=== PATIENT | male | born 1960 | race American Indian/Alaskan Native ===

== ENCOUNTER 2018-08-12 14:47 | Emergency (ER) | payer OTHER ==
[2018-08-12] MEDS: KETOROLAC 60 MG/2 ML VIAL (J1885) IM (15:51)
== END 2018-08-12 16:21 | disposition home or self-care (01) ==
LOC: M ED 14:47
DX: S42.002A Fracture of unspecified part of left clavicle, initial encounter for closed fracture (principal); W01.0XXA Fall on same level from slipping, tripping and stumbling without subsequent striking against object, initial encounter; Y92.018 Other place in single-family (private) house as the place of occurrence of the external cause; Z88.0 Allergy status to penicillin; F17.210 Nicotine dependence, cigarettes, uncomplicated
CPT/HCPCS: J1885

== ENCOUNTER 2018-08-12 19:31 | Emergency (ER) | payer OTHER ==
[2018-08-12] MEDS: NORCO, ANEXSIA 5/325MG TABLET (HYDROcodone/ACETAMINOPHEN) PO (19:57)
== END 2018-08-12 20:01 | disposition home or self-care (01) ==
LOC: M ED 19:31
DX: Z76.0 Encounter for issue of repeat prescription (principal); S42.002D Fracture of unspecified part of left clavicle, subsequent encounter for fracture with routine healing; X58.XXXD Exposure to other specified factors, subsequent encounter; Z88.0 Allergy status to penicillin; F17.210 Nicotine dependence, cigarettes, uncomplicated
CPT/HCPCS: 99282

== ENCOUNTER 2020-09-11 11:17 | Emergency (ER) | payer OTHER ==
[~2020-09-11] VITALS: Ht 185.4 cm; Wt 79.5 kg
[~2020-09-11 11:17] MED LIST: HYDR-3715 PO
[2020-09-11 11:58] LABS: BASO % 0.2 % (0.0-1.0); EOS % 0.3 % (0.0-3.0); HEMATOCRIT 41.4 % (42.0-52.0); LYMPH # 3.5 10^3/uL (1.5-5.0); LYMPH % 26.9 % (24.0-44.0); MEAN CORPUSCULAR HEMOGLOBIN 28.6 pg (27.0-33.0); MEAN CORPUSCULAR HGB CONC 33.8 g/dl (32.0-36.5); MEAN CORPUSCULAR VOLUME 84.5 fl (80.0-96.0); MONO # 1.4 10^3/uL (0.0-0.8); MONO % 10.8 % (0.0-5.0); NEUTROPHILS % 61.6 % (36.0-66.0); PLATELET COUNT, AUTOMATED 415 10^3/uL (150-450); WHITE BLOOD COUNT 13.1 10^3/uL (4.0-10.0)
[2020-09-11 12:21] LABS: ERYTHROCYTE SEDIMENTATION RATE 61 mm/hr (0-20)
[2020-09-11 12:26] LABS: BLOOD UREA NITROGEN 16 MG/DL (7-18); CALCIUM LEVEL 10.1 MG/DL (8.5-10.1); CARBON DIOXIDE LEVEL 27 MEQ/L (21-32); CHLORIDE LEVEL 98 MEQ/L (98-107); CREATININE FOR GFR 0.64 MG/DL (0.70-1.30); GLOMERULAR FILTRATION RATE > 60.0 (>56); GLUCOSE, FASTING 99 MG/DL (70-100); POTASSIUM SERUM 4.4 MEQ/L (3.5-5.1); SODIUM LEVEL 131 MEQ/L (136-145)
[2020-09-11] MEDS ORDERED: KETOROLAC 30 MG/ML 1ML VIAL IV ONE (13:00)
[2020-09-11] MEDS ORDERED: DOXYCYCLINE HYCLATE 100MG TABLET PO ONE (13:00)
[2020-09-11] MEDS ORDERED: diazePAM 5MG TABLET PO ONE (13:00)
[2020-09-11] MEDS ORDERED: CYCL-707 PO (13:34)
[2020-09-11] MEDS ORDERED: DOXY100C37 PO (13:34)
[2020-09-11 13:38] VITALS: BP 145/89
== END 2020-09-11 14:20 | disposition home or self-care (01) ==
LOC: M ED 11:17 → EDBD 11:17 → M ED 14:20
DX: L02.412 Cutaneous abscess of left axilla (principal); L72.3 Sebaceous cyst; S39.012A Strain of muscle, fascia and tendon of lower back, initial encounter; M54.16 Radiculopathy, lumbar region; X58.XXXA Exposure to other specified factors, initial encounter; Y92.89 Other specified places as the place of occurrence of the external cause; Y93.89 Activity, other specified; Y99.8 Other external cause status; M25.572 Pain in left ankle and joints of left foot; R10.31 Right lower quadrant pain; F17.210 Nicotine dependence, cigarettes, uncomplicated; Z88.0 Allergy status to penicillin
CPT/HCPCS: 80048; 85025; 85652; 86140; 96374; 99284; J1885

== ENCOUNTER 2020-09-18 19:48 | Emergency (ER) | payer OTHER ==
[~2020-09-18] VITALS: Ht 185.4 cm; Wt 78.2 kg
[~2020-09-18 19:48] MED LIST changes: +CYCL-707 PO; +DOXY100C37 PO
[2020-09-18 20:05] VITALS: BP 139/78
[2020-09-18 20:59] LABS: BASO # 0.1 10^3/uL (0.0-0.2); BASO % 0.3 % (0.0-1.0); EOS # 0.1 10^3/uL (0.0-0.5); EOS % 0.8 % (0.0-3.0); HEMATOCRIT 39.5 % (42.0-52.0); LYMPH # 3.6 10^3/uL (1.5-5.0); LYMPH % 23.3 % (24.0-44.0); MEAN CORPUSCULAR HEMOGLOBIN 28.2 pg (27.0-33.0); MEAN CORPUSCULAR HGB CONC 32.9 g/dl (32.0-36.5); MEAN CORPUSCULAR VOLUME 85.7 fl (80.0-96.0); MONO # 1.9 10^3/uL (0.0-0.8); MONO % 12.2 % (0.0-5.0); NEUTROPHILS # 9.8 10^3/uL (1.5-8.5); NEUTROPHILS % 62.9 % (36.0-66.0); PLATELET COUNT, AUTOMATED 418 10^3/uL (150-450); RED BLOOD COUNT 4.61 10^6/uL (4.30-6.10); WHITE BLOOD COUNT 15.6 10^3/uL (4.0-10.0)
--- NOTE | 2020-09-18 21:06 | REPVR ---
PROCEDURE INFORMATION: Exam: CT Head Without Contrast Exam date and time: 09/18/2020 8:21 PM Age: 59 years old Clinical indication: Pain; Headache; Additional info: Severe headache TECHNIQUE: Imaging protocol: Computed tomography of the head without contrast. Radiation optimization: All CT scans at this facility use at least one of these dose optimization techniques: automated exposure control; mA and/or kV adjustment per patient size (includes targeted exams where dose is matched to clinical indication); or iterative reconstruction. COMPARISON: No relevant prior studies available. FINDINGS: Brain: There is no acute cortical infarction, intracranial hemorrhage or mass. Cerebral ventricles: No ventriculomegaly. Bones/joints: Unremarkable. No acute fracture. Paranasal sinuses: Visualized sinuses are unremarkable. No fluid levels. Mastoid air cells: Visualized mastoid air cells are well aerated. Soft tissues: Unremarkable. IMPRESSION: No acute intracranial abnormality. Electronically signed by: Megan Nation On 09/18/2020 21:07:06 PM
--- NOTE | 2020-09-18 21:14 | REPVR ---
PROCEDURE INFORMATION: Exam: CT Lumbar Spine Without Contrast Exam date and time: 09/18/2020 8:21 PM Age: 59 years old Clinical indication: Low back pain TECHNIQUE: Imaging protocol: Computed tomography images of the lumbar spine without contrast. Radiation optimization: All CT scans at this facility use at least one of these dose optimization techniques: automated exposure control; mA and/or kV adjustment per patient size (includes targeted exams where dose is matched to clinical indication); or iterative reconstruction. COMPARISON: No relevant prior studies available. FINDINGS: Vertebrae: No anterior wedging deformity. Several Schmorl's nodes are visualized, age indeterminate. No acute lucent fracture lines are seen. No destructive osseous lesions identified. There is mild right convexity of the lumbar. Discs/Spinal canal/Neural foramina: Mild spondylitic changes are noted, with no severe central canal stenosis demonstrated by CT. Neural foraminal stenosis is seen on the left at L3-L4, bilaterally at L5-S1. IMPRESSION: No acute lumbar spinal injury demonstrated by CT. Degenerative changes of the lumbar spine. Electronically signed by: Carmen Pedraza On 09/18/2020 21:14:26 PM
[2020-09-18 21:23] LABS: ERYTHROCYTE SEDIMENTATION RATE 70 mm/hr (0-20)
[2020-09-18 21:30] LABS: BLOOD UREA NITROGEN 16 MG/DL (7-18); CALCIUM LEVEL 9.5 MG/DL (8.5-10.1); CARBON DIOXIDE LEVEL 27 MEQ/L (21-32); CHLORIDE LEVEL 99 MEQ/L (98-107); CPK CREATINE PHOSPHOKINASE 104 U/L (39-308); CREATININE FOR GFR 0.79 MG/DL (0.70-1.30); GLOMERULAR FILTRATION RATE > 60.0 (>56); GLUCOSE, FASTING 101 MG/DL (70-100); POTASSIUM SERUM 5.1 MEQ/L (3.5-5.1); SODIUM LEVEL 131 MEQ/L (136-145)
[2020-09-18] MEDS ORDERED: NS 1,000 ML IV ONE (22:00)
[2020-09-18] MEDS ORDERED: KETOROLAC 30 MG/ML 1ML VIAL IV ONE (22:00)
--- NOTE | 2020-09-18 22:09 | REPVR ---
PROCEDURE INFORMATION: Exam: XR Chest, 1 View Exam date and time: 09/18/2020 9:53 PM Age: 59 years old Clinical indication: Right-sided chest pain; Additional info: Right mid back pain; R/O pneumonia TECHNIQUE: Imaging protocol: XR of the chest Views: 1 view. COMPARISON: CR Chest, 2 view PA, Lat 04/29/2016 3:02 AM FINDINGS: Lungs: There is no pulmonary vascular congestion. There is no evidence of focal parenchymal consolidation. Hyperinflation is likely due to emphysematous changes. Pleural space: There are no pleural effusions. There is no evidence of pneumothorax. Heart/Mediastinum: The cardiac silhouette is within normal limits. Bones/joints: No acute osseous abnormality is identified. IMPRESSION: 1. No infiltrate or pleural effusion is seen. 2. Hyperinflation is likely due to emphysematous changes. Electronically signed by: Carmen Pedraza On 09/18/2020 22:09:34 PM
--- NOTE | 2020-09-19 00:04 | REPVR ---
PROCEDURE INFORMATION: Exam: CT Abdomen And Pelvis Without Contrast Exam date and time: 09/18/2020 10:51 PM Age: 59 years old Clinical indication: Abdominal pain; Flank; Right; Additional info: Right flank pain; Hematuria- R/O stone TECHNIQUE: Imaging protocol: Computed tomography of the abdomen and pelvis without contrast. Radiation optimization: All CT scans at this facility use at least one of these dose optimization techniques: automated exposure control; mA and/or kV adjustment per patient size (includes targeted exams where dose is matched to clinical indication); or iterative reconstruction. COMPARISON: No relevant prior studies available. FINDINGS: Liver: The liver is enlarged. No definite parenchymal lesions are identified by noncontrast CT. Gallbladder and bile ducts: The gallbladder is normal. Pancreas: The pancreas is normal. 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 Nodular densities in the splenic bed are presumed splenules but are nonspecific. Adrenal glands: The adrenal glands appear nodular bilaterally, nonspecific but suspicious for metastatic disease. Kidneys and ureters: Nonobstructing right nephrolithiasis. Stomach and bowel: The stomach is normal. Retained fecal material is noted in the colon. No bowel obstruction is seen. The bowel is not optimally characterized without contrast. Appendix: No evidence of appendicitis. Intraperitoneal space: No free air. No significant fluid collection. Retroperitoneal space: Soft tissue density nodules are seen in the splenic bed, the pericolic gutters bilaterally, the left retroperitoneal space at the anterior margin of ileus psoas muscle, pelvis, and right groin. The largest soft tissue nodules measure 4.8 and 3.9 cm and are located in pelvis, abutting the rectal wall. Exophytic rectal mass cannot be excluded. Correlate with clinical and historic information. Vasculature: Atherosclerotic vascular disease is noted. Lymph nodes: Unremarkable. No enlarged lymph nodes. Urinary bladder: The bladder is normal. Reproductive: Unremarkable as visualized. Bones/joints: Spinal degenerative changes noted. There findings of osseous metastatic disease, with destructive lesions involving the right posterior elements at T11, suspected lesions at T12 and L3, and dominant destructive lesion involving the right acetabulum, with disruption of the medial acetabular wall and the quadrilateral plate, as well as soft tissue extension. IMPRESSION: 1. Findings of osseous metastatic disease, with dominant lesion involving the right acetabulum, disrupting the quadrilateral plate and medial acetabular wall. 2. Multiple nodular lesions in the abdomen and pelvis, largest adjacent to the rectum and inseparable from the rectal wall, as described. Metastatic disease is the primary consideration. An exophytic rectal mass is not excluded. 3. 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 4. Nonobstructing right nephrolithiasis. 5. Hepatomegaly. Electronically signed by: Carmen Pedraza On 09/19/2020 00:04:54 AM
== END 2020-09-19 01:15 | disposition left against medical advice (07) ==
LOC: M ED 19:48
DX: C79.51 Secondary malignant neoplasm of bone (principal); M54.5 Low back pain; Z88.0 Allergy status to penicillin; Z79.899 Other long term (current) drug therapy; Z79.2 Long term (current) use of antibiotics
CPT/HCPCS: 70450; 71045; 72131; 74176; 80048; 81001; 82550; 85025; 85652; 86140; 96361; 96374; 99284; J1885

== ENCOUNTER 2020-09-19 08:52 | Inpatient (IN) | payer OTHER ==
[~2020-09-19] VITALS: Ht 185.4 cm; Wt 77.0 kg
[2020-09-19] MEDS ORDERED: NS 1,000 ML IV SCH (09:16)
[2020-09-19] MEDS ORDERED: MORPHINE 4 MG/ML 1ML VIAL/SYRINGE (J2270) IV PRN (09:30)
[2020-09-19] MEDS ORDERED: ONDANSETRON 4MG/2ML VIAL IV ONE (09:30)
[2020-09-19 10:07] LABS: BASO # 0.1 10^3/uL (0.0-0.2); BASO % 0.4 % (0.0-1.0); EOS % 0.3 % (0.0-3.0); HEMATOCRIT 38.8 % (42.0-52.0); HEMOGLOBIN 12.4 g/dl (13.5-17.5); LYMPH # 2.7 10^3/uL (1.5-5.0); LYMPH % 21.4 % (24.0-44.0); MEAN CORPUSCULAR HEMOGLOBIN 27.3 pg (27.0-33.0); MEAN CORPUSCULAR VOLUME 85.5 fl (80.0-96.0); MONO # 1.5 10^3/uL (0.0-0.8); MONO % 12.2 % (0.0-5.0); NEUTROPHILS # 8.2 10^3/uL (1.5-8.5); NEUTROPHILS % 65.3 % (36.0-66.0); PLATELET COUNT, AUTOMATED 408 10^3/uL (150-450); RED BLOOD COUNT 4.54 10^6/uL (4.30-6.10); WHITE BLOOD COUNT 12.6 10^3/uL (4.0-10.0)
[2020-09-19 10:36] LABS: ALBUMIN 2.8 GM/DL (3.2-5.2); ALT/SGPT 13 U/L (12-78); BILIRUBIN,DIRECT 0.1 MG/DL (0.0-0.2); BILIRUBIN,TOTAL 0.4 MG/DL (0.2-1.0); BLOOD UREA NITROGEN 11 MG/DL (7-18); CARBON DIOXIDE LEVEL 27 MEQ/L (21-32); CHLORIDE LEVEL 96 MEQ/L (98-107); CK-MB VALUE MASS < 1.0 NG/ML (<3.6); CPK CREATINE PHOSPHOKINASE 62 U/L (39-308); CREATININE FOR GFR 0.56 MG/DL (0.70-1.30); GLOMERULAR FILTRATION RATE > 60.0 (>56); GLUCOSE, FASTING 96 MG/DL (70-100); LIPASE 34 U/L (73-393); MB/CK RELATIVE INDEX 1.61 (< OR =4); POTASSIUM SERUM 4.3 MEQ/L (3.5-5.1); SODIUM LEVEL 130 MEQ/L (136-145); TOTAL PROTEIN 7.5 GM/DL (6.4-8.2); TROPONIN I < 0.02 NG/ML (< 0.10)
[2020-09-19 10:54] LABS: RSV AMPLIFICATION NEGATIVE (NEGATIVE)
[2020-09-19] MEDS ORDERED: ONDANSETRON 4MG/2ML VIAL IV PRN (11:45)
--- NOTE | 2020-09-19 12:27 | REP ---
INDICATION: mets COMPARISON: None TECHNIQUE: Axial noncontrast images from the thoracic inlet to the upper abdomen with coronal and sagittal reformations. This CT examination was performed using the following dose reduction techniques: Automated exposure control, adjustment of mA and/or kv according to the patient's size, and use of iterative reconstruction technique. FINDINGS: Left perihilar mass measuring roughly 3.6 cm maximal diameter with spiculated margination is identified. Small 10 mm left upper lobe perihilar lesion, and small irregular part solid nodular area in the periphery of the right upper lobe measuring roughly 3 cm maximal diameter is appreciated. Scattered irregular focal areas of fibrosis and ground-glass nodularity is also identified within the right upper lobe and right lower lobe which may represent early or resolving lesions. Underlying chronic emphysematous changes and scattered scarring noted. No pleural effusion. No pneumothorax. Tracheobronchial tree is relatively patent. Atherosclerotic changes to the thoracic aorta and coronary arteries noted without aortic aneurysm or cardiomegaly. No pericardial effusion. Mediastinal and hilar adenopathy cannot be excluded. Osseous structures demonstrate degenerative changes with subtle scattered lytic lesions in multiple vertebral bodies suggesting metastatic lesions. IMPRESSION: 1. 3.6 cm left hilar mass. Smaller ill-defined scattered primarily part solid and ground-glass nodular lesions with peripheral spiculated margins suggest satellite lesions. Adenopathy cannot be excluded and is incompletely evaluated due to lack of contrast enhancement. 2. Thoracic vertebral bodies demonstrate subtle scattered lytic lesions suspicious for associated osseous metastases. <Electronically signed by Galindo Taylor > 09/19/20 [id number]
[2020-09-19 14:00] VITALS: BP 140/85
[2020-09-19] MEDS: MORPHINE 2 MG/ML 1ML VIAL (J2270) IV PRN ×2 (14:39→19:08)
[2020-09-19] MEDS: ENOXAPARIN 40MG/0.4ML SYRINGE (J1650 PER 10MG) SC SCH (14:40)
[2020-09-19] MEDS: KCL 20MEQ in NS 1000ML 1,000 ML IV SCH ×2 (14:52→21:26)
[2020-09-19 15:12] LABS: OSMOLALITY SERUM 268 MOSM/KG (275-295)
[2020-09-19 15:20] LABS: FREE T4 1.27 NG/DL (0.76-1.46); TOTAL PROTEIN 7.4 GM/DL (6.4-8.2)
--- NOTE | 2020-09-19 16:07 | HPE ---
HISTORY AND PHYSICAL DATE OF ADMISSION: 09/19/2020 CHIEF COMPLAINT: Intractable pain from suspected metastatic cancer unknown origin. HISTORY OF PRESENT ILLNESS: The patient is a 59-year-old who presented to the emergency room last night with intractable pain in his right thigh, low back, and left jaw. He had CT of the abdomen and pelvis that suggested metastatic skeletal disease, as well as nodular lesions of the abdomen and pelvis and possible rectal mass. 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 He felt like he had to go home to attend to things and came back to be admitted for pain control and workup. I did a CT of the chest on admission that shows a 3.6 cm left hilar mass, ground-glass nodular lesions with peripheral spiculated margins suggesting satellite lesions, thoracic vertebral bodies suspicious for associated osseous metastasis. PAST MEDICAL HISTORY: He has no significant past medical history. He does not have a primary care provider and has not seen a doctor at any point in his life. SOCIAL HISTORY: He is single. 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 He smokes a pack of cigarettes a day. He drinks no alcohol. FAMILY HISTORY: Both parents of "old age." No cancer in the family. REVIEW OF SYSTEMS: He has lost about 7 pounds in the last month. He has lost his appetite. He says he is not thirsty like he usually is either. No fevers, chills, night sweats, hematuria, rectal bleeding, or hemoptysis. He has a chronic cough and it has not changed. No chest pain. Neurologic: He has a constant headache on the left side of his head that has been present for about two weeks not associated with any visual disturbance, focal weakness, or numbness. MEDICATIONS: None. ALLERGIES: PENICILLIN. PHYSICAL EXAMINATION: VITAL SIGNS: Per flow sheet. He is alert, oriented, and conversant, in no distress. HEENT: Pupils equal and reactive to light. TMs normal. Oropharynx difficult to exam with no flashlight, but it looked grossly unremarkable. He has a bony nodular mass in the left mandibular ramus. NECK: No adenopathy. He has a bony prominence slightly tender over the spine of the left scapula. LUNGS: Decreased breath sounds, but clear. HEART: Regular rhythm with no murmur. ABDOMEN: Soft and nontender with no masses. Liver and spleen not enlarged. EXTREMITIES: No clubbing, cyanosis, or edema. Moves arms and legs with equal strength. LABORATORY DATA: White count is 12.6, hemoglobin 12.4, platelets 408,000. Sodium 130, potassium 4.3, BUN 11, creatinine 0.5, glucose 96. Liver function tests all normal. Albumin 2.8. COVID test negative. Urinalysis yesterday had 20 red cells. IMPRESSION: 1. Intractable skeletal pain from suspected metastatic disease of unknown primary. He has an abnormality in the perirectal region, nodular masses in the abdomen, and a hilar mass. The case has been discussed informally with pulmonary, as well as oncology. We will hold off on consultation for both those specialties until we obtain tissue biopsy. I discussed fiberoptic bronchoscopy versus image-guided biopsy with pulmonology, and they advised to try the image-guided approach first. He has a left scapular lesion that should be quite approachable, as well as hilar mass, as well as abdominal masses. We also could do a lower endoscopy if necessary. Oncology is ready to see him once we get a tissue diagnosis. 2. Adrenal lesions, suspected metastatic disease. We will get a fasting cortisol level on him. He might need adrenal support. 3. Tobacco abuse. Concern about lung cancer. Importance of smoking cessation discussed. 4. Headache. MRI of the brain ordered for concern about metastatic lesion. 5. Deep vein thrombosis (DVT) prophylaxis with Lovenox has been ordered.
--- NOTE | 2020-09-19 16:48 | REPVR ---
PROCEDURE INFORMATION: Exam: MR Head Without and With Contrast Exam date and time: 09/19/2020 3:50 PM Age: 59 years old Clinical indication: Screening for metastatic disease. History of possible lung CA and possible melanoma of the skin. TECHNIQUE: Imaging protocol: MR of the head without and with intravenous contrast. Contrast material: PROHANCE; Contrast volume: 15 ml; Contrast route: INTRAVENOUS (IV); COMPARISON: CT Head without contrast 09/18/2020 8:17 PM FINDINGS: Brain: Multiple small enhancing intracranial lesions are present including two adjacent lesions within the right frontal lobe (axial postcontrast images 18 and 17, another small lesion inferiorly in the right gyrus rectus on axial postcontrast image 13, and the largest singular lesion in the superior right cerebellar hemisphere measuring 0.8 cm. Small degree of vasogenic edema surrounds the lesions in the right gyrus rectus and right cerebellum. Mild nonspecific T2/FLAIR hyperintensities of the periventricular and deep subcortical white matter, most likely secondary to chronic small vessel ischemic change. No evidence of acute intracranial hemorrhage or extra-axial fluid collection. No evidence of mass effect or midline shift. No restricted diffusion to suggest acute infarct. Cerebral ventricles: No ventriculomegaly. Bones/joints: Unremarkable. Paranasal sinuses: Normal as visualized. No acute sinusitis. Mastoid air cells: No mastoid effusion. Orbits: Unremarkable. Soft tissues: Unremarkable. IMPRESSION: Findings concerning for several small intracranial metastases, as detailed above. Electronically signed by: Odin Alvarez On 09/19/2020 16:48:27 PM
[2020-09-19 22:00] VITALS: BP 114/75
[2020-09-20 06:00] VITALS: BP 111/73
[2020-09-20 07:01] LABS: HEMATOCRIT 38.1 % (42.0-52.0); HEMOGLOBIN 12.6 g/dl (13.5-17.5); MEAN CORPUSCULAR HEMOGLOBIN 28.3 pg (27.0-33.0); MEAN CORPUSCULAR HGB CONC 33.1 g/dl (32.0-36.5); MEAN CORPUSCULAR VOLUME 85.6 fl (80.0-96.0); PLATELET COUNT, AUTOMATED 392 10^3/uL (150-450); RED BLOOD COUNT 4.45 10^6/uL (4.30-6.10)
[2020-09-20 07:28] LABS: BLOOD UREA NITROGEN 12 MG/DL (7-18); CALCIUM LEVEL 9.7 MG/DL (8.5-10.1); CARBON DIOXIDE LEVEL 28 MEQ/L (21-32); CHLORIDE LEVEL 97 MEQ/L (98-107); CREATININE FOR GFR 0.58 MG/DL (0.70-1.30); GLOMERULAR FILTRATION RATE > 60.0 (>56); GLUCOSE, FASTING 100 MG/DL (70-100); POTASSIUM SERUM 4.5 MEQ/L (3.5-5.1); SODIUM LEVEL 130 MEQ/L (136-145)
[2020-09-20] MEDS: KCL 20MEQ in NS 1000ML 1,000 ML IV SCH (07:45)
[2020-09-20] MEDS: ENOXAPARIN 40MG/0.4ML SYRINGE (J1650 PER 10MG) SC SCH (08:17)
[2020-09-20] MEDS: ACETAMINOPHEN 500 MG TAB PO PRN ×2 (08:18→15:56)
[2020-09-20] MEDS ORDERED: GLUCOSE 4GM CHEW TABLET PO PRN (10:15)
[2020-09-20] MEDS ORDERED: DEXTROSE 50% 50 ML SYRINGE IV PRN (10:15)
[2020-09-20] MEDS ORDERED: GLUCAGON INJ 1MG VIAL SC PRN (10:15)
--- NOTE | 2020-09-20 10:34 | IPN ---
PROGRESS NOTE DATE: 09/20/2020 SUBJECTIVE: Jose's workup continues to show ominous findings. He presented with bony pain and headache. Radiographic studies show diffuse metastatic disease involving various areas of the skeletal system. We did an MRI of the brain yesterday which unfortunately showed several intracranial metastases. There is some vasogenic edema associated with some of the lesions. No mass effect or midline shift. PHYSICAL EXAMINATION: Vital signs: Afebrile, vital signs stable. General appearance: He is alert, conversant, no distress. No facial droop or weakness. HEENT shows a hard, nodular mass left mandibular ramus. He has a large palpable mass over the spine and left scapula. Lungs: Clear. Heart: Regular rate and rhythm. Abdomen: Soft, nontender. Extremities: No peripheral edema. IMPRESSION: 1. Metastatic disease, unknown primary. He has a large lung mass as well as findings suspicious for rectal cancer. I ordered an image placed needle biopsy. We will defer to radiology as far as the lesions; scapula lesion is certainly very accessible. Case has been discussed with Dr. Acuña of the oncology service. He will see the patient in consultation. There is no gastroenterology nor interventional radiology available over the weekend. I will consult gastroenterology on Tuesday when we have some coverage again. 2. Headache. Concerned about the brain metastases. We are going to start some Decadron. Findings have been discussed on a daily with the patient who understands and asks appropriate questions.
--- NOTE | 2020-09-20 10:40 | RADENCPD ---
Date/Time of Encounter Date of Encounter: Sep 20, 2020 Time of Encounter: 10:31 Encounter Received a request for consultation from Dr. Ross. I reviewed the MRI brain and CT chest and note patient has a small volume of metastatic disease in the brain consisting of a few scattered subcentimeter lesions. He is on appropriate decadron for his headache. No report of focal neurologic deficits. He has what looks like a left lung primary cancer. I recommend a CT abdomen and pelvis with contrast to complete initial staging as he has apparent abdominal metastatic adenopathy on the lower cuts of his CT chest adjacent to the upper pole of the right kidney. Given his low volume intracranial disease, and the possibility that this may be small cell lung cancer (as opposed to NSCLC or an alternative primary site), I think it would be most prudent to wait for tissue diagnosis before proceeding with any brain directed radiation. If he is proven to have SCLC, then standard of care would be whole brain radiation. If he has any other histology I would offer him radiosurgical intervention, which I now do here @ [facility]. I will meet with the patient on Tuesday09/22/20 in person and discuss these opti ons. We can discuss whether he would benefit from palliative RT to his skeletal metastases as well. By then hopefully a biopsy will be in the works. AVI DEY MD Sep 20, 2020 10:40
[2020-09-20] MEDS: dexameTHASONE 4 MG/ML 1ML VIAL (J1100 PER 1MG) IV SCH ×3 (12:58→23:24)
[2020-09-20] MEDS: HumaLOG INSULIN (NovoLOG) PER UNIT SC SCH ×3 (12:59→19:52)
[2020-09-20 14:00] VITALS: BP 130/80
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
[2020-09-20 22:00] VITALS: BP 130/86
[2020-09-21] MEDS: ACETAMINOPHEN 500 MG TAB PO PRN ×2 (02:42→14:20)
[2020-09-21] MEDS: dexameTHASONE 4 MG/ML 1ML VIAL (J1100 PER 1MG) IV SCH ×3 (05:13→18:27)
[2020-09-21 06:00] VITALS: BP 135/88
[2020-09-21 06:13] LABS: HEMATOCRIT 38.6 % (42.0-52.0); HEMOGLOBIN 12.4 g/dl (13.5-17.5); MEAN CORPUSCULAR HEMOGLOBIN 27.2 pg (27.0-33.0); MEAN CORPUSCULAR HGB CONC 32.1 g/dl (32.0-36.5); MEAN CORPUSCULAR VOLUME 84.6 fl (80.0-96.0); PLATELET COUNT, AUTOMATED 422 10^3/uL (150-450); RED BLOOD COUNT 4.56 10^6/uL (4.30-6.10); WHITE BLOOD COUNT 10.8 10^3/uL (4.0-10.0)
[2020-09-21 06:40] LABS: BLOOD UREA NITROGEN 16 MG/DL (7-18); CALCIUM LEVEL 9.5 MG/DL (8.5-10.1); CARBON DIOXIDE LEVEL 26 MEQ/L (21-32); CHLORIDE LEVEL 100 MEQ/L (98-107); CREATININE FOR GFR 0.69 MG/DL (0.70-1.30); GLOMERULAR FILTRATION RATE > 60.0 (>56); GLUCOSE, FASTING 137 MG/DL (70-100); POTASSIUM SERUM 4.2 MEQ/L (3.5-5.1); SODIUM LEVEL 130 MEQ/L (136-145)
[2020-09-21] MEDS: ENOXAPARIN 40MG/0.4ML SYRINGE (J1650 PER 10MG) SC SCH (08:36)
[2020-09-21] MEDS: HumaLOG INSULIN (NovoLOG) PER UNIT SC SCH ×4 (08:36→20:51)
--- NOTE | 2020-09-21 13:51 | IPN ---
PROGRESS NOTE DATE: 09/21/2020 SUBJECTIVE: No real change in Jose. His headache is better since starting the Decadron. He has a visual disturbance. It sounds like some minor diplopia probably related to his brain tumors. Appreciate the consultation from Oncology, from Dr. Acuña and Dr. Navarro from Radiation Oncology. Plan is for biopsy of one of his lesions by Interventional Radiology tomorrow. PHYSICAL EXAMINATION: Vital signs: Afebrile, vital signs stable. General: Unchanged from yesterday. LABS: CBC, BMP unremarkable. Sodium is remaining normal at 130. IMPRESSION AND PLAN: 1. Widely metastatic cancer, unknown primary. Suspect lung primary. He also has a perirectal mass. He is going in for Interventional Radiology tomorrow. Most accessible lesion is probably the lesion over the left scapular spine. Further treatments on hold until we get pathology back. 2. Question adrenal insufficiency. Not hypotensive. Electrolytes do not look terribly unremarkable except for chronic mild hyponatremia. He has a fasting cortisol pending. He is at risk for renal insufficiency from the metastases. 3. Headache probably from the brain metastases, better with the IV Decadron. 4. Visual disturbance. He has some mild diplopia. Onset was before starting the Decadron. I suspect this is related to brain metastases.
[2020-09-21 14:00] VITALS: BP 109/71
[2020-09-21] MEDS: MORPHINE 2 MG/ML 1ML VIAL (J2270) IV PRN (18:28)
[2020-09-21 22:00] VITALS: BP 111/71
[2020-09-22] MEDS: dexameTHASONE 4 MG/ML 1ML VIAL (J1100 PER 1MG) IV SCH ×2 (00:46→05:58)
[2020-09-22] MEDS: ACETAMINOPHEN 500 MG TAB PO PRN (00:47)
[2020-09-22] MEDS: MORPHINE 2 MG/ML 1ML VIAL (J2270) IV PRN (00:48)
[2020-09-22 06:00] VITALS: BP 139/86
[2020-09-22 06:47] LABS: HEMATOCRIT 38.1 % (42.0-52.0); HEMOGLOBIN 12.5 g/dl (13.5-17.5); MEAN CORPUSCULAR HEMOGLOBIN 28.1 pg (27.0-33.0); MEAN CORPUSCULAR HGB CONC 32.8 g/dl (32.0-36.5); MEAN CORPUSCULAR VOLUME 85.6 fl (80.0-96.0); PLATELET COUNT, AUTOMATED 404 10^3/uL (150-450); RED BLOOD COUNT 4.45 10^6/uL (4.30-6.10); WHITE BLOOD COUNT 22.9 10^3/uL (4.0-10.0)
[2020-09-22 07:09] LABS: BLOOD UREA NITROGEN 17 MG/DL (7-18); CALCIUM LEVEL 9.5 MG/DL (8.5-10.1); CARBON DIOXIDE LEVEL 25 MEQ/L (21-32); CHLORIDE LEVEL 102 MEQ/L (98-107); CREATININE FOR GFR 0.75 MG/DL (0.70-1.30); GLOMERULAR FILTRATION RATE > 60.0 (>56); GLUCOSE, FASTING 133 MG/DL (70-100); POTASSIUM SERUM 4.6 MEQ/L (3.5-5.1); SODIUM LEVEL 133 MEQ/L (136-145)
[2020-09-22] MEDS ORDERED: MIRALAX *UNIT DOSE* 17GM PACKET PO PRN (08:00)
[2020-09-22] MEDS ORDERED: NORCO, ANEXSIA 5/325MG TABLET (HYDROcodone/ACETAMINOPHEN) PO PRN (08:00)
--- NOTE | 2020-09-22 08:58 | IPN ---
PROGRESS NOTE DATE: 09/19/2020 SUBJECTIVE: Jose [facility]. He is hoping to go home today after his image-guided biopsy. 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 He would like to go home but I am concerned about his safety as far as his right hip and towards that end had a discussion with Dr. Espino from Orthopedics which will be summarized below. Headache is better since started on Decadron and he notes the visual disturbance is better as well. PHYSICAL EXAMINATION: VITAL SIGNS: Stable, afebrile. HEENT: No nystagmus. No facial droop or weakness. LUNGS: Clear. HEART: Regular rate and rhythm. ABDOMEN: Soft, nontender. EXTREMITIES: Normal strength in arms and legs. NEUROLOGIC: Normal coordination on [id number]. Gait shows he has an antalgic gait and right hip seems unsteady to him. LABS: CBC, BMP unremarkable. Blood sugars have been normal. IMPRESSION AND PLAN: 1. Metastatic disease, unknown primary. Image-guided biopsy today. Appreciate the involvement of Dr. Navarro and Dr. Acuña from radiation and medical oncology respectively. It will be several days before we get the biopsy results back. 2. Brain metastases with headaches, improved with IV Decadron. He will be discharged on oral Decadron. He is hoping to go home today but we might need to hold that up so we can get a bone scan. 3. Right acetabular disruption. He is concerned about his right hip. I called Dr. Espino. He reviewed the CT scan. There is concern about the right hip but he feels he can safely weight bear on it currently but should the patient fall or put undo stress on the hip he could have a significant fracture develop. He also would recommend a bone scan so we make sure there is nothing else going on in that lower extremity to put him at risk of a pathological fracture that would need attention before discharge. 4. Question adrenal insufficiency. He has adrenal metastases, at risk of adrenal insufficiency. I am waiting on his fasting cortisol level.
--- NOTE | 2020-09-22 09:02 | REP ---
INDICATION: mets COMPARISON: None. TECHNIQUE: AP and frog-lateral views of the right hip FINDINGS: Degenerative changes are appreciated including increased sclerosis to the acetabulum with inferior spurring as well as associated joint space narrowing and and small calcified periarticular densities. No obvious lytic, sclerotic, or blastic lesions are identified. The lytic lesions noted involving the acetabulum and in the posterior aspect of the ischium on CT are not identifiable by radiographic evaluation. IMPRESSION: 1. Arthritic changes. 2. Lytic lesions identified on recent CT are not visible by radiographic evaluation. <Electronically signed by Galindo Taylor > 09/22/20 0818
[2020-09-22] MEDS: HumaLOG INSULIN (NovoLOG) PER UNIT SC SCH (09:13)
[2020-09-22] MEDS: ENOXAPARIN 40MG/0.4ML SYRINGE (J1650 PER 10MG) SC SCH (09:13)
--- NOTE | 2020-09-22 09:49 | IPN ---
PROGRESS NOTE DATE: 09/19/2020 SUBJECTIVE: Joes is seen [facility]. He is trying to go home today. He has widely metastatic cancer of unknown primary, getting an image-guided biopsy today. Suspected lung cancer. He does have rectal mass suspected as well. He is able to bear weight and walk though it hurts his hip to walk and he is unsteady on it. Concerned about INCOMPMLETE/verified/ml
[2020-09-22 10:51] LABS: CORTISOL AM 16.7 UG/DL (4.3-22.4)
--- NOTE | 2020-09-22 12:37 | RADONC.CN ---
Radiation Oncology Hx/Consult Radiation Oncology Consult Date of Service: Sep 22, 2020 Pt Identifier Jose Marie is a 59 year old male 50+ pack year smoker with a newly diagnosed widely metastatic cancer, likely left lung primary, awaiting tissue diagnosis. He is seen today for consideration of RT to address his brain and bone me tastases. Diagnosis/Treatment History Oncologic History Prior to August 2020 had minimal medical follow up. 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 August 2020: Noted onset of left scapular and BL leg pain. Had a soft tissue nodule over the left scapula which hurt. Pain prompted him to present to the ED on 09/11/20, was given antibiotic and sent home. Pain emerged in his left jaw and he developed headache as well as some non-specific blurry vision. Noted he h as been losing weight. He came back to the hospital on 09/17/20 and was found on 09/19/20 CT chest to have a left hilar mass with probable satellitosis, mediastinal adenopathy and multiple bone metastases. CT abdomen on 09/18/20 with a perirectal mass, as well as possible adrenal metastasis on the left. He had an MRI head which showed multiple low volume subcentimeter metastases. A biopsy of his left scapular soft tissue lesion is pending. Interval History Patient reports PHELPS is somewhat better with decadron. His pain as described in the oncologic history remains but is better with current management. He has some stable SOB with exertion. No abdominal pain. No fevers or chills. He is open to pursuing cancer treatment but prioritizes his ability to do the things he likes and QOL over length. 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 Family History: No family history of cancer Social History: 50 pack year current smoker Previous ETOH abuse, (multiple DUI) Allergies / Meds Allergies: Coded Allergies: Penicillins (Verified Allergy, Unknown, THROAT SWELLS, 09/19/20) "almost " Home Meds Active Scripts Cyclobenzaprine HCl (Cyclobenzaprine HCl) 10 Mg Tablet, 10 MG PO TID for muscle spasms for 10 Days, #30 TAB Prov:SALLY TEMPLE ELECTION WATCHER 09/11/20 Doxycycline Monohydrate (Doxycycline Monohydrate) 100 Mg Capsule, 100 MG PO Q12H, #20 CAP Prov:SALLY TEMPLEFoster SEYMOUR 09/11/20 Review of Systems General: Reports: Normal Appetite Eyes: Reports: Vision change HEENT: Reports: Head Aches Skin: Reports: Lesions (left superior scapular soft tissue lesion) Pulmonary: Reports: Dyspnea; Denies: Pleuritic Chest Pain Cardiovascular: Reports: Chest Pain; Denies: Palpitations Gastrointestinal: Denies: Nausea, Vomiting, Abdominal Pain, Diarrhea Genitourinary: Denies: Dysuria, Frequency, Incontinence Hematologic: Denies: Bruising, Petecchia, Enlarged Lymph Nodes Musculoskeletal: Reports: Shoulder pain, Back pain, Leg pain Neurological: Denies: Numbness, Change in Speech Psych: Reports: Mood Normal; Denies: Anxiety Vital Signs Vital Signs Date Time Temp Pulse Resp B/P (MAP) Pulse Ox O2 Delivery O2 Flow Rate FiO2 09/22/20 11:18 17 Room Air 09/22/20 06:00 97.5 92 139/86 (103) 97 General Exam: Positive: Alert, Cooperative, No Acute Distress Eye Exam: Positive: PERRLA, Conjunctiva & lids normal, EOMI ENT EXAM: Positive: Atraumatic, Mucous membr. moist/pink, Pharynx Normal Neck Exam: Positive: Supple; Negative: Lymphadenopathy Chest Exam: Positive: Clear to auscultation, Normal air movement Heart Exam: Positive: Rate Normal, Regular Rhythm Abdomen Exam: Positive: Normal bowel sounds; Negative: Tenderness, Hepatospenomegaly, Mass Extremity Exam: Positive: Other (Left superior scapula raised red soft tissue nodule. ) Skin Exam: Positive: Nl turgor and temperature Neuro Exam: Positive: Normal Speech, Normal Tone, Cranial Nerves 3-12 NL Psych Exam: Positive: Mental status NL Diagnostic and Laboratory Diagnostic Review Radiologic images, relevant labs and pathology reports were personally reviewed and discussed with Mr. Marie. Laboratory Tests 09/21/20 05:48 09/22/20 06:38 Laboratory Tests 09/20/20 17:07: Bedside Glucose (Misc Panel) 109H 09/20/20 19:50: Bedside Glucose (Misc Panel) 213H 09/21/20 05:48: White Blood Count 10.8H, Red Blood Count 4.56, Hemoglobin 12.4L, Hematocrit 38.6L, Mean Corpuscular Volume 84.6, Mean Corpuscular Hemoglobin 27.2, Mean Corpuscular Hemoglobin Concent 32.1, Red Cell Distribution Width 13.2, Platelet Count 422, Nucleated Red Blood Cells % (auto) 0.0, Sodium Level 130L, Potassium Level 4.2, Chloride Level 100, Carbon Dioxide Level 26, Anion Gap 4L, Blood Urea Nitrogen 16, Creatinine 0.69L, Glomerular Filtration Rate > 60.0, Fasting Glucose 137H, Calcium Level 9.5 09/21/20 12:20: Bedside Glucose (Misc Panel) 149H 09/21/20 16:39: Bedside Glucose (Misc Panel) 136H 09/21/20 20:50: Bedside Glucose (Misc Panel) 160H 09/22/20 06:00: Bedside Glucose (Misc Panel) 119H 09/22/20 06:38: White Blood Count 22.9H, Red Blood Count 4.45, Hemoglobin 12.5L, Hematocrit 38.1L, Mean Corpuscular Volume 85.6, Mean Corpuscular Hemoglobin 28.1, Mean Corpuscular Hemoglobin Concent 32.8, Red Cell Distribution Width 13.3, Platelet Count 404, Nucleated Red Blood Cells % (auto) 0.0, Sodium Level 133L, Potassium Level 4.6, Chloride Level 102, Carbon Dioxide Level 25, Anion Gap 6L, Blood Urea Nitrogen 17, Creatinine 0.75, Glomerular Filtration Rate > 60.0, Fasting Glucose 133H, Calcium Level 9.5 Assessment and Plan Impression Mr. Marie is a 59 year old male 50+ pack year smoker with a newly diagnosed widely metastatic cancer, likely left lung primary, awaiting tissue diagnosis. He is seen today for consideration of RT to address his brain and bone metastases. Stage Stage IV, awaiting tissue diagnosis Performance Status ECOG 0 Plan We had an extensive discussion with Mr. Marie regarding the diagnosis at hand and available therapeutic options. Tissue diagnosis is pending biopsy. The remainder of his initial treatment planning can be conducted as an outpatient. With respect to his pain, he has multifocal skeletal disease. We discussed that he would benefit from some palliative RT as an outpatient to the most bothersome sites. With respect to his brain metastases, if he does not have SCLC, I would offer S RS. If he has SCLC (which is possible given the centrally involved left lung mass and extensive smoking history) then I would give him WBRT with Namenda. These contingencies were briefly discussed. His neurological complaints are non focal given the low volume of metastases on his MRI, I think he could be tapered to 4 mg BID decadron at discharge. I will then taper him when I see him as an outpatient. We will facilitate close follow up in my office upon discharge. We instructed the patient that if there were any questions,concerns or changes in clinical status in the interim to contact us. Recommendations Decadron 4 mg PO BID at discharge. I will assume responsibility for further tapering when I see him in the office Outpatient follow up with me for treatment decision making (I will facilitate) AVI DEY MD Sep 22, 2020 12:37
[2020-09-22] MEDS ORDERED: SODIUM BICARBONATE 8.4% INJ 50MEQ 50 ML VIAL As Ordered ONE (13:04)
[2020-09-22] MEDS ORDERED: LIDOCAINE 1% MDV 20ML VIAL As Ordered ONE (13:04)
[2020-09-22 14:19] VITALS: BP 136/86
--- NOTE | 2020-09-22 15:19 | REP ---
INDICATION: metastases, unknown primary. COMPARISON: None. TECHNIQUE: The procedure is performed by Jes Llanes [facility], under the direct supervision of Dr. Peace. The risks and benefits of the procedure were explained to the patient and informed consent was obtained both orally and written. Directly prior to the start of the procedure, a formal timeout was done in the exam room. The thoracic spine bony lesion was localized using CT guidance. Skin was prepped and draped in the usual sterile fashion. ml of 1% lidocaine 10 mg/ml was used as a local anesthetic. FINDINGS: Using CT guidance a 19/20 gauge coaxial needle biopsy system was inserted and advanced into the lesion. Eight core biopsy samples were obtained and sent to the lab. After the appropriate amount of monitored convalescence the patient was discharged from the department. IMPRESSION: CT guided thoracic spine bony lesion biopsy. <Electronically signed by Jes Llanes > 09/22/20 1450 <Electronically signed by Dougie Peace > 09/22/20 [id number]
--- NOTE | 2020-09-22 15:58 | REP ---
INDICATION: mets. COMPARISON: None. TECHNIQUE/RADIOTRACER AND DOSE: Following the intravenous administration of 22.0 mCi technetium 99 M MDP, multiple images of the whole body are obtained in various projections. FINDINGS: Focal increased uptake is visualized in the right ischium at the site of a lytic bone lesion seen recent CT exam 09/18/2020. No significant abnormal uptake is seen in any portion of the spine, despite small lytic lesions in several thoracic vertebral bodies as well as in the right transverse process of T11. There is post injection uptake in the soft tissues of the left hand. There is focal increased uptake in the left tarsal region, specifically in the medial cuneiform bone, likely posttraumatic or arthritic. Renal and bladder activity are seen. IMPRESSION: Increased uptake in the right ischium at the site of a lytic bone lesion seen on recent CT scan. No other compelling scintigraphic evidence of osseous metastases. No abnormal uptake in any portion of the spine. <Electronically signed by Dougie Peace > 09/22/20 [id number]
[2020-09-22] MEDS ORDERED: DEXA4TA PO (16:12)
[2020-09-22] MEDS ORDERED: HYDR-3715 PO (16:12)
[2020-09-22] MEDS ORDERED: ACET-683 PO (16:12)
--- NOTE | 2020-09-22 18:05 | DSES ---
DISCHARGE SUMMARY DATE OF ADMISSION: 09/19/2020 DATE OF DISCHARGE: 09/22/2020 PRINCIPAL DIAGNOSIS: Presumed metastatic disease unknown primary (lung cancer suspected). CONSULTATIONS: 1. Dr. Navarro of radiation oncology. 2. Dr. Acuña of medical oncology. 3. Dr. Espino of orthopedics. PRIMARY CARE PHYSICIAN: None. HISTORY: Jose Marie is a 59-year-old admitted with what looks to be widespread metastatic cancer. He presented with severe pain in his pelvis and hips and was shown on a CT of the abdomen and pelvis to have areas of metastasis in the spine and particularly the right acetabulum. Details are in the history and physical from admission. HOSPITAL COURSE: The patient was admitted to a medical bed. CT scan of the chest showed a right hilar lesion. CT scan of the abdomen and pelvis showed a perirectal mass, as well as adenopathy. His adrenal glands looked to be involved as well. MRI of the brain suspicious for numerous small metastases. The patient was started on IV Decadron. We arranged for an image-guided biopsy, which took place today. They biopsied one of the thoracic spine lesions. We did a bone scan and the report is pending, but I do not see any significant lesions in his femurs or tibias (we did the bone scan after discussion of the case with Dr. Espino today with concern being that he has a severely affected right acetabulum and though he can bear weight with it currently, if he had a large lesion in the femur on that side that would require attention prior to his discharge. I see no such lesion on my review of the scan). SIGNIFICANT LABORATORY DATA: White count 22,000 (on steroids), hemoglobin 12.5, platelets 404,000. Sodium 133, potassium 4.6, BUN 17, creatinine 0.7, glucose 133. Fasting cortisol normal at 16. Free T4 and TSH normal. SPEP and UPEP pending. Pathology pending. DISCHARGE DISPOSITION: He is discharged home in stable condition. He is walking with a cane. He does not want a walker, he says he will use the cane. Cautioned about the potential risk if he should fall. Pain control will be with [id number] analgesics such as ibuprofen or Tylenol. I will prescribe [place] 5/325 one q. 6 hours p.r.n. for severe pain. Activity and diet as tolerated. He has a follow-up appointment with Dr. Navarro, Dr. Acuña, and the orthopedic group. He will need a primary care physician, which the hospitalist pathology secretary/transcriptionist will arrange.
[2020-09-23 12:02] LABS: ALBUMIN 3.07 GM/DL (3.29-5.55); ALBUMIN % 41.5 % (55.8-66.1); ALPHA-1-GLOBULIN % 8.6 % (2.9-4.9); ALPHA-1-GLOBULINS 0.64 GM/DL (0.17-0.41); ALPHA-2-GLOBULINS 1.08 GM/DL (0.42-0.99); ALPHA-2-GLOBULINS % 14.6 % (7.1-11.8); BETA-1-GLOBULINS 0.45 GM/DL (0.28-0.60); BETA-1-GLOBULINS % 6.1 % (4.7-7.2); BETA-2-GLOBULINS 0.65 GM/DL (0.19-0.55); BETA-2-GLOBULINS % 8.8 % (3.2-6.5); GAMMA GLOBULIN % 20.4 % (11.1-18.8); GAMMA GLOBULINS 1.51 GM/DL (0.65-1.58)
[2020-09-23 19:08] LABS: FREE KAPPA LIGHT CHAINS SERUM 39.9 mg/L (3.3-19.4); FREE LAMBDA LIGHT CHAINS SERUM 27.3 mg/L (5.7-26.3); KAPPA/LAMBDA RATIO SERUM 1.46 (0.26-1.65)
== END 2020-09-22 18:04 | disposition home or self-care (01) | DRG 951 ==
LOC: M ED 08:52 → M ED INP 11:31 → ENRESERV 12:23 → M MSPAV 13:36
PROVIDERS: ADMIT Family Medicine; ATTEND Family Medicine
PROC: 00BX3ZX Excision of Thoracic Spinal Cord, Percutaneous Approach, Diagnostic (ICD-10-PCS; principal; 2020-09-22 13:10)
DX: C34.90 Malignant neoplasm of unspecified part of unspecified bronchus or lung (principal); C79.70 Secondary malignant neoplasm of unspecified adrenal gland; H53.2 Diplopia; C79.51 Secondary malignant neoplasm of bone; C78.5 Secondary malignant neoplasm of large intestine and rectum; C79.31 Secondary malignant neoplasm of brain; F17.210 Nicotine dependence, cigarettes, uncomplicated; Z88.0 Allergy status to penicillin

== ENCOUNTER → 2020-10-15 | Outpatient (CLI) | payer OTHER ==
[~2020-10-15] MED LIST changes: +ACET-683 PO; +ALEV220T22 PO; +CALC1TAB63 PO; +DEXA4TA PO; +FOLI1TAB11 PO; +LIDOCAINE 1% MDV 20ML VIAL As Ordered ONE; +MIDAZOLAM INJ 2MG/2ML VIAL (J2250 PER 1MG) As Ordered ONE; +MORP-69 PO; +VANCOMYCIN 500MG/10ML VIAL As Ordered ONE; +diphenhydrAMINE 50MG/ML VIAL (J1200) As Ordered ONE; +fentaNYL 100 MCG/2 ML INJECTION (J3010) As Ordered ONE
--- NOTE | 2020-10-15 15:32 | IRHP ---
[facility] IR Pre-Procedure H & P General Date of Service: Oct 15, 2020 Procedure: Same Day Surgery Interval History and Physical I have seen the patient and reviewed last H & P performed within 30 days. There is no significant interval change. History of Present Illness Chief Complaint The patient is a 59-year-old male admitted with a reason for visit of Metastatic Ca. PRE-PROCEDURE DIAGNOSIS: lung cancer HEART: normal rate. LUNGS: normal breathing at rest. ASA Classification ASA Classification: III-Severe systemic dis. Mallampati Score: II NPO: Yes Problems with prior sedation: No Obstructive Sleep Apnea: No Plan moderate sedation Allergies Coded Allergies: Penicillins (Verified Allergy, Unknown, THROAT SWELLS, 09/19/20) "almost " Home Medications Scheduled Calcium Carbonate/Vitamin D3 (Calcium 600-Vit D3 400 Tablet), 2 TAB PO DAILY Dexamethasone (Dexamethasone), 4 MG PO Q12H Folic Acid (Folic Acid), 1 TAB PO DAILY Morphine Sulfate (Morphine Sulfate ER), 15 MG PO BID Scheduled PRN Acetaminophen (Acetaminophen), 1,000 MG PO Q6HP PRN for PAIN / FEVER Hydrocodone/Acetaminophen (Hydrocodone-Acetamin 5-325 mg), 1 TAB PO Q6HP PRN for MILD/MODERATE PAIN (PS 1-7) Miscellaneous Medications Naproxen Sodium (Aleve), 220 MG PO, (Reported) Discontinued Medications Cyclobenzaprine HCl (Cyclobenzaprine HCl), 10 MG PO TID Discontinued Reason: Pt states not taking Doxycycline Monohydrate (Doxycycline Monohydrate), 100 MG PO Q12H Discontinued Reason: Pt states not taking ZACH OCONNELL MD Oct 15, 2020 15:32
[2020-10-15 18:15] VITALS: BP 110/67
--- NOTE | 2020-10-16 14:35 | POST-OPPD ---
Postoperative Procedure Note Date Of Procedure: Oct 15, 2020 Time Of Procedure: 16:00 IR ultrasound and fluoroscopy guided port placement IR Ultrasound of the neck. IR Moderate sedation. Clinical indication: Lung cancer. Metastatic cancer. Physician: Dr. Degroot. Procedure: The patient was advised of the benefits, risks, and alternatives of the procedure and informed consent was obtained. A time-out was performed with verification of the patient's name, MRN, site of procedure and type of procedure to be performed. The patient was positioned in the supine position on the angiographic table. The site was prepped and draped in the usual sterile fashion. Moderate sedation was performed by the physician including the presence of an independent trained RN who assisted and monitored the patient's level of consciousness and physiologic status. Following the administration of fentanyl and Versed , the physician spent 45 minutes of continuous face to face time with the patient. Ultrasound of the neck reveals a patent and compressible right internal jugular vein. A lead simulation modeling engineer radiograph reveals no gross abnormality. The neck and anterior chest wall were anesthetized with lidocaine. The right internal jugular vein was accessed using a microintroducer needle under ultrasound guidance, via a lateral approach. An 018 wire was advanced into the superior vena cava, the needle was removed and a microsheath was placed. An Amplatz wire was then passed into the inferior vena cava. An incision at the internal jugular vein access site and anterior chest wall were made using a scalpel. An incision was made at the anterior chest wall. A small pocket was created using a combination of blunt and sharp dissection. A tunneling device was then used to pass the catheter from the pocket to the neck puncture site. An 8- Kh[employer] Smart power port was then positioned in the pocket. The catheter was then measured and cut. The introducer sheath was exchanged for a peel-away sheath. The catheter was passed through the peel-away sheath into the internal jugular vein and the peel-away sheath was removed. The port tip was positioned at the cavoatrial junction. The port was then accessed with a Zarate needle. The port flushes and aspirates well. The puncture site in the neck was closed. The chest wall incision was then closed with 2-0 Vicryl and 4-0 Monocryl. Glue and Steri- Strips were applied. A sterile dressing was then applied. The patient tolerated the procedure well and was returned to the PRU in stable condition. Estimated blood loss: <5 ml. Complications: None. Conclusion: 1. Successful placement of an 8-Khmer Ang[employer] Smart power port via the right internal jugular vein. The port is ready for immediate use. 2. Patient to follow up in IR clinic in 2 weeks. Thank you for this referral. ZACH DEGROOT MD Oct 16, 2020 14:35
== END ==
LOC: M IRPRO 13:39
PROVIDERS: ATTEND Radiology Diagnostic Radiology
DX: C34.90 Malignant neoplasm of unspecified part of unspecified bronchus or lung (principal); Z88.0 Allergy status to penicillin; Z79.899 Other long term (current) drug therapy
CPT/HCPCS: 36561; 99152; 99153; C1769; C1788; C1894; J1200; J1642; J1644; J2250; J3010; J3370

== ENCOUNTER 2020-10-17 09:30 | Outpatient (RCR) | payer OTHER ==
--- NOTE | 2020-10-06 10:51 | RADENCPD ---
Date/Time of Encounter Date of Encounter: Oct 06, 2020 Time of Encounter: 08:30 Encounter I saw Jose for his on-treatment visit today. We are giving him SRS to 4 small brain metastases. He reports feeling well with pain controlled on low dose norco. He is taking decadron 4 mg daily with no PHELPS, N, V. My concern today is over his vital signs, he was tachy to 168 with an irregular thready pulse and irregular rhythm on auscultation. BP was 150s/100 on auto and manual. Other VS WNL. I think that he has new A fib or flutter and should be evaluated at ED. I gave my recommendation that he present there immediately. I explained that the consequences of untreated arrhythmia include stroke [place] and . He however, politely refused. Stated he has work around the house to do and didn't want to wait. Given his refusal, I asked him to stop decadron and to present to ED immediately if he has subjective CP, SOB, N, V, or any neurologic signs. He stated he would present if symptoms manifest AVI DEY MD Oct 06, 2020 10:51
--- NOTE | 2020-10-14 14:10 | RADENCPD ---
Date/Time of Encounter Date of Encounter: Oct 14, 2020 Time of Encounter: 14:07 Encounter Jose called the office today, over the past 3 days the pain in the right hip has become worse and is now interfering with his ability to ambulate. He denies falls/trauma/fracture. He states the pain emanates from the right hip and goes down the leg to the ankle. We had previously discussed proceeding with palliative RT to this and other bony sites of disease once he was underway with chemoimmunotherapy, which is the life prolonging treatment in this case. Because of the acutely worsened right hip pain I will simulate and treat the metastasis there urgently. He is coming in for port placement tomorrow @ 1pm, I will try to simulate the hip prior to this. We can then start RT the next day. AVI DEY MD Oct 14, 2020 14:10
[~2020-10-17 09:30] MED LIST changes: -LIDOCAINE 1% MDV 20ML VIAL As Ordered ONE; -MIDAZOLAM INJ 2MG/2ML VIAL (J2250 PER 1MG) As Ordered ONE; -VANCOMYCIN 500MG/10ML VIAL As Ordered ONE; -diphenhydrAMINE 50MG/ML VIAL (J1200) As Ordered ONE; -fentaNYL 100 MCG/2 ML INJECTION (J3010) As Ordered ONE
[2020-10-21] MEDS ORDERED: ONDA8TAB10 PO (10:13)
[2020-10-21] MEDS ORDERED: PROC10TA4 PO (10:13)
== END 2020-10-19 ==
LOC: M ONCR 09:30
PROVIDERS: ATTEND General Practice
DX: C79.31 Secondary malignant neoplasm of brain (principal); C79.51 Secondary malignant neoplasm of bone; Z79.899 Other long term (current) drug therapy

== ENCOUNTER 2020-10-22 10:28 | Outpatient (RCR) | payer OTHER ==
[~2020-10-22 10:28] MED LIST changes: +ONDA8TAB10 PO; +PROC10TA4 PO
[2020-10-31] MEDS ORDERED: MORP-69 PO (11:55)
[2020-10-31] MEDS ORDERED: HYDR-3715 PO (11:55)
--- NOTE | 2020-10-31 11:57 | RADENCPD ---
Date/Time of Encounter Date of Encounter: Oct 31, 2020 Time of Encounter: 11:55 Encounter Jose called to require refills of ER morphine and short acting hydrocodone for breakthrough pain. He is due for these so will prescribe. Reports pain in the right hip is much improved since radiation. Has second cycle of chemotherapy upcoming. No acute pain concerns at this time. AVI DEY MD Oct 31, 2020 11:57
[2020-11-07] MEDS ORDERED: HYDR4TAB PO (13:54)
--- NOTE | 2020-11-07 14:36 | RADENCPD ---
Date/Time of Encounter Date of Encounter: Nov 07, 2020 Time of Encounter: 14:29 Encounter Jose called today complaining of mounting pain, lower back, which is new, as well as the jaw, and numerous cutaneous sites (all consistent with his widely disseminated NSCLC). He has been taking the ER morphine with some positive effect, however the hydrocodone for breakthrough has not been enough to accommodate basic ADLs like cooking and getting around the house. I shared that I was concerned that he is not able to care for himself adequately at home and that I think he should present to the ED for evaluation and pain control and so that he can be dispositioned to a more suitable living environment (either home with services, versus 24 hr care). He politely refused. He is on active chemotherapy and intends to continue, which is entirely reasonable. 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 To help with his breakthrough pain I will escalate short acting narcotic to dilaudid 4 mg q4h PRN MDD 6 tabs. I also discussed referral to palliative care ( Kaila Bailey) as he would benefit from her expertise in pain management. Plan: Urgent PC referral placed D/C hydrocodone Start Dilaudid 4 mg q4h PRN Continue Morphine ER 15 mg BID AVI DEY MD Nov 07, 2020 14:36
[2020-11-13] MEDS ORDERED: FOLI1TAB11 PO (13:25)
[2020-11-13] MEDS ORDERED: CALC1TAB63 PO (13:25)
[2020-11-16] MEDS ORDERED: MORP-69 PO (06:04)
== END 2020-11-16 ==
LOC: M ONCR 10:28
PROVIDERS: ATTEND General Practice
DX: C79.31 Secondary malignant neoplasm of brain (principal); C79.51 Secondary malignant neoplasm of bone

== ENCOUNTER → 2020-11-04 | Outpatient (POV) | payer OTHER ==
--- NOTE | 2020-11-06 11:23 | IRPN ---
[facility] IR Progress Note IR Progress Note DATE: Nov 04, 2020 Patient agreed to telephone follow-up. I spent 5 minutes talking to the patient. FOLLOW-UP: Patient is status post port placement. States port is doing well. No pain, swelling or discharge at the site. Port was used without any issues. ON EXAMINATION: No video on patient side. IMPRESSION: Doing well status post port placement. No further follow-up scheduled unless initiated by patient and/or referring provider. Thank you for this referral Allergies Coded Allergies: Penicillins (Verified Allergy, Unknown, THROAT SWELLS, 09/19/20) "almost " ZACH OCONNELL MD Nov 06, 2020 11:23
== END ==
LOC: M TMIRPOV 09:03
PROVIDERS: ATTEND Radiology Diagnostic Radiology
DX: Z45.2 Encounter for adjustment and management of vascular access device (principal)

== ENCOUNTER 2020-11-15 21:43 | Emergency (ER) | payer OTHER ==
[~2020-11-15] VITALS: Ht 185.4 cm; Wt 77.3 kg
[~2020-11-15 21:43] MED LIST changes: +HYDR4TAB PO
[2020-11-15] MEDS ORDERED: MORPHINE 15 MG SA TAB PO ONE (23:30)
[2020-11-15] MEDS ORDERED: HYDROmorphone 2 MG TAB PO ONE (23:30)
[2020-11-15] MEDS ORDERED: KETOROLAC 30 MG/ML 1ML VIAL IV ONE (23:50)
--- NOTE | 2020-11-16 01:12 | REPVR ---
PROCEDURE INFORMATION: Exam: XR Chest Exam date and time: 11/15/2020 12:31 AM Age: 59 years old Clinical indication: Other: Chronic chest pain/ cancer TECHNIQUE: Imaging protocol: XR of the chest Views: 2 views. COMPARISON: 1. CT Chest without contrast 2020-09-19 11:49 2. [place] Chest, 1 view 2020-09-18 21:57 3. CR Chest, 2 view PA, Lat 2016-04-29 03:02 FINDINGS: Tubes, catheters and devices: Right-sided Port-A-Cath in good position. Lungs: Mild COPD/emphysema. There is some minimal linear opacities in the mid right lung. Left hilar mass again demonstrated compatible with known malignancy. Pleural spaces: Unremarkable. No pleural effusion. No pneumothorax. Heart/Mediastinum: Unremarkable. No cardiomegaly. Bones/joints: Unremarkable. IMPRESSION: Minimal linear opacities in the mid right lung. Left hilar mass again demonstrated compatible with known malignancy. Electronically signed by: Joshua Cleaning On 11/16/2020 01:12:33 AM
[2020-11-16 01:22] LABS: HEMATOCRIT 26.3 % (42.0-52.0); HEMOGLOBIN 8.4 g/dl (13.5-17.5); MEAN CORPUSCULAR HEMOGLOBIN 27.3 pg (27.0-33.0); MEAN CORPUSCULAR HGB CONC 31.9 g/dl (32.0-36.5); MEAN CORPUSCULAR VOLUME 85.4 fl (80.0-96.0); PLATELET COUNT, AUTOMATED 206 10^3/uL (150-450); RED BLOOD COUNT 3.08 10^6/uL (4.30-6.10); WHITE BLOOD COUNT 14.5 10^3/uL (4.0-10.0)
[2020-11-16 01:52] LABS: ATYPICAL LYMPH 1 % (0-5); LYMPHOCYTES 17 % (16-44); NEUTROPHILS 82 % (28-66); PLATELET ESTIMATE NORMAL (NORMAL)
[2020-11-16 01:53] LABS: ANISOCYTOSIS 1+
[2020-11-16 01:54] LABS: BLOOD UREA NITROGEN 13 MG/DL (7-18); CALCIUM LEVEL 8.9 MG/DL (8.5-10.1); CARBON DIOXIDE LEVEL 29 MEQ/L (21-32); CHLORIDE LEVEL 97 MEQ/L (98-107); CK-MB VALUE MASS < 1.0 NG/ML (<3.6); CPK CREATINE PHOSPHOKINASE 33 U/L (39-308); CREATININE FOR GFR 0.46 MG/DL (0.70-1.30); GLOMERULAR FILTRATION RATE > 60.0 (>56); GLUCOSE, FASTING 90 MG/DL (70-100); INR 1.11; MB/CK RELATIVE INDEX 3.03 (< OR =4); NT-PRO BNP 431 PG/ML (<125); POTASSIUM SERUM 3.8 MEQ/L (3.5-5.1); PROTHROMBIN TIME 14.5 SECONDS (12.5-14.3); SODIUM LEVEL 131 MEQ/L (136-145); TROPONIN I < 0.02 NG/ML (< 0.10)
[2020-11-16 01:55] LABS: PARTIAL THROMBOPLASTIN TIME 27.9 SECONDS (24.2-38.5)
[2020-11-16 03:59] LABS: CK-MB VALUE MASS < 1.0 NG/ML (<3.6); CPK CREATINE PHOSPHOKINASE 31 U/L (39-308); MB/CK RELATIVE INDEX 3.23 (< OR =4); TROPONIN I < 0.02 NG/ML (< 0.10)
[2020-11-16] MEDS ORDERED: MORP-69 PO (06:04)
[2020-11-16 06:30] VITALS: BP 117/57
--- NOTE | 2020-11-16 19:59 | ECGEPIP ---
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
--- NOTE | 2020-11-16 20:03 | ECGEPIP ---
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
[2020-11-26] MEDS ORDERED: HYDR4TAB PO (14:44)
[2020-11-26] MEDS ORDERED: FENT1DIS14 TOP (14:44)
== END 2020-11-16 06:47 | disposition home or self-care (01) ==
LOC: M ED 21:43
DX: R07.9 Chest pain, unspecified (principal); C34.90 Malignant neoplasm of unspecified part of unspecified bronchus or lung; Z88.0 Allergy status to penicillin
CPT/HCPCS: 71046; 80048; 82550; 82553; 83880; 85025; 85610; 85730; 93005; 93041; 94760; 96374; 99285; J1885

== ENCOUNTER 2020-12-02 09:47 | Inpatient (IN) | payer OTHER ==
[~2020-12-02] VITALS: Ht 185.4 cm; Wt 68.3 kg
[~2020-12-02 09:47] MED LIST changes: +FENT1DIS14 TOP; +FOLIC ACID 1 MG TAB PO SCH
[2020-12-02 10:54] LABS: HEMATOCRIT 21.8 % (42.0-52.0); MEAN CORPUSCULAR HEMOGLOBIN 27.3 pg (27.0-33.0); MEAN CORPUSCULAR HGB CONC 31.7 g/dl (32.0-36.5); MEAN CORPUSCULAR VOLUME 86.2 fl (80.0-96.0); PLATELET COUNT, AUTOMATED 254 10^3/uL (150-450); RED BLOOD COUNT 2.53 10^6/uL (4.30-6.10)
[2020-12-02] MEDS ORDERED: MED REC COMMENT (10:54)
[2020-12-02 10:57] LABS: HEMOGLOBIN 6.9 g/dl (13.5-17.5)
[2020-12-02 11:04] LABS: INR 1.18; PROTHROMBIN TIME 15.3 SECONDS (12.5-14.3)
[2020-12-02 11:05] LABS: PARTIAL THROMBOPLASTIN TIME 38.3 SECONDS (24.2-38.5)
[2020-12-02 11:16] LABS: ATYPICAL LYMPH 15 % (0-5); LYMPHOCYTES 5 % (16-44); MONOCYTES 12 % (0-5); MYELOCYTES 4 % (0-0); NEUTROPHILS 63 % (28-66)
[2020-12-02 11:17] LABS: ALBUMIN 1.7 GM/DL (3.2-5.2); ALT/SGPT 19 U/L (12-78); BILIRUBIN,DIRECT < 0.1 MG/DL (0.0-0.2); BILIRUBIN,TOTAL 0.3 MG/DL (0.2-1.0); BLOOD UREA NITROGEN 9 MG/DL (7-18); CALCIUM LEVEL 8.4 MG/DL (8.5-10.1); CARBON DIOXIDE LEVEL 29 MEQ/L (21-32); CHLORIDE LEVEL 98 MEQ/L (98-107); CREATININE FOR GFR 0.58 MG/DL (0.70-1.30); FERRITIN 1739 NG/ML (26-388); GLOMERULAR FILTRATION RATE > 60.0 (>56); GLUCOSE, FASTING 102 MG/DL (70-100); IRON (FE) 11 UG/DL (65-175); LIPASE 21 U/L (73-393); PERCENT SATURATION 11.1 % (19.7-50.0); POTASSIUM SERUM 3.9 MEQ/L (3.5-5.1); SODIUM LEVEL 133 MEQ/L (136-145); TOTAL IRON BINDING CAPACITY 99 UG/DL (250-450); TOTAL PROTEIN 6.1 GM/DL (6.4-8.2)
[2020-12-02 11:18] LABS: ANISOCYTOSIS 1+; HYPOCHROMASIA 1+; PLATELET ESTIMATE NORMAL (NORMAL)
--- NOTE | 2020-12-02 11:20 | REP ---
INDICATION: pain/ cancer. COMPARISON: None. TECHNIQUE: Deep vein duplex ultrasonography of the right lower extremity. FINDINGS: There is occlusive thrombus in the right popliteal vein extending into the distal superficial femoral vein. Additionally there is occlusive thrombus in the profundus femoral vein extending into the common femoral vein. At the common femoral vein this is from his is nonocclusive. IMPRESSION: Right lower extremity deep vein occlusion of thrombus as described. Right lower extremity superficial vein occlusive and nonocclusive thrombus as described. <Electronically signed by Dougie Hartman > 12/02/20 [id number]
[2020-12-02 11:25] LABS: VITAMIN B12 LEVEL > 2000 PG/ML (247-911)
[2020-12-02 11:27] LABS: RSV AMPLIFICATION NEGATIVE (NEGATIVE)
[2020-12-02] MEDS ORDERED: ONDANSETRON 4 MG TAB PO PRN (12:35)
[2020-12-02] MEDS ORDERED: HYDROmorphone 2 MG TAB PO PRN (12:35)
[2020-12-02] MEDS ORDERED: PROCHLORPERAZINE 5 MG TAB (S0183) PO PRN (12:35)
[2020-12-02 13:19] VITALS: BP 104/62
[2020-12-02 13:43] VITALS: BP 115/69
--- NOTE | 2020-12-02 14:26 | HPEPDOC ---
General Date of Admission 12/02/2020 Date of Service: Dec 02, 2020 Attending Physician: CATALINO SERVIN MD Chief Complaint The patient is a 59-year-old male admitted with a reason for visit of Abnormal Labs. 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 He reports fair PO, diffuse pain at baseline with difficulty obtaining more pain medication through his pharmacy as he is told that he can only renew at a specific date though he takes his norco every four hours because his pain is severe enough. While in the ED, his BP was soft with SBP 90s, otherwise breathing comfortably on room air and afebrile. Workup was notable for WBC 14, hgb 6.9, platelets 254, Na 133, K 3.9, Cr 0.58, iron 11, jennifer ritin 1739, Vit B12 >2000, retic % of 1.9, while guaiac was negative for blood per rectum. He had a bilateral LE edema and was found to have RLE DVT on Doppler venous US. Dr. Meek ordered 1u pRBCs and recommended admission to medicine for anemia, weakness with witnessed poor ambulation and even transfer and newly noted DVT. On speaking with Mr. Marie, he is adamant about returning home today after receiving blood because he has too much to do at home and his family lives far out of state. 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 His plan thus far is to receive his blood transfusion and sign out AMA. I discussed this at length with him and told him that I would highly recommend staying for medical optimization. Home Medications Scheduled Calcium Carbonate/Vitamin D3 (Calcium 600-Vit D3 400 Tablet) 1 Each Tablet, 2 TAB PO DAILY Fentanyl (Fentanyl) 25 Mcg Patch.td72, 1 PATCH TOP Q3D for cancer pain Folic Acid (Folic Acid) 1 Mg Tablet, 1 TAB PO DAILY Scheduled PRN Hydromorphone HCl (Hydromorphone HCl) 4 Mg Tablet, 4 MG PO Q4HP PRN for breakthrough pain Ondansetron HCl (Ondansetron HCl) 8 Mg Tablet, 8 MG PO Q6H PRN for NAUSEA OR VOMITING Prochlorperazine Maleate (Prochlorperazine Maleate) 10 Mg Tablet, 10 MG PO Q6H PRN for NAUSEA OR VOMITING Miscellaneous Medications [Med Rec Comment] , (Reported) FENTANYL PATCH APPLIED TO LEFT SHOULDER, PT STATES WAS LAST APPLIED 3-4 DAYS AGO Allergies Coded Allergies: Penicillins (Verified Allergy, Unknown, THROAT SWELLS, 09/19/20) "almost " Past Medical History Medical History Recently diagnosed widely metastatic lung CA with ongoing chemo and brain radiation Emphysema Surgical History Biopsy of thoracic spine lesion Family History Significant Family History: Other (reports that his mother and father both of "old age" ) Social History * 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, 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, 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) Alcohol: Denies Drugs: denies Recent Travel/Sick Contacts: Denies: Recent travel, Recent sick contacts Psychosocial History: No pertinent psych hx A-FIB/CHADSVASC A-FIB History Current/History of A-Fib/PAF?: No Current PO Anticoag Therapy: Yes Age/Risk Factor Scoring CHADSVASC: CHADSVASC Response (Comments) Value Age Risk Factor Age < 65 years old 0 Gender Risk Factor Male 0 Hx of CHF No 0 Hx of HTN No 0 Hx of Stroke/TIA/or VTE Yes 2 Hx of Diabetes No 0 Hx of Vascular Disease No 0 Total 2 Treatment Treatment ordered: Rivaroxaban Review of Systems Constitutional: Reports: Weakness; Denies: Chills, Fever, Night Sweats Eyes: Denies: Pain, Vision change ENT: Denies: Head Aches, Ear Pain, Dysphagia Skin: Denies: Rash, Lesions, Breakdown Pulmonary: Denies: Dyspnea, Cough Cardiovascular: Denies: Chest Pain, Palpitations, Orthopnea, Paroxysmal Noc. Dyspnea, Lt Headedness Gastrointestinal: Reports: Nausea (sometimes, with ongoing chemo); Denies: Vomiting, Abdominal Pain, Diarrhea Genitourinary: Denies: Dysuria, Frequency, Incontinence, Retention Hematologic: Denies: Bruising, Bleeding Excessively Endocrine: Denies: Polydipsia, Polyphagia, Polyuria, Heat Intolerance, Cold Intolerance, Other Endocrine Sx Musculoskeletal: Reports: Neck Pain, Back Pain, Leg Pain, Other Symptoms (generallized bony pain all over with known metastatic disease) Neurological: Reports: Weakness; Denies: Numbness, Change in speech, Confusion, Seizures Psych: Reports: Mood Normal; Denies: Depression, Memory Issues Physical Examination General Exam: Positive: Alert, No Acute Distress, Other (thin) Eye Exam: Positive: PERRLA, Conjunctiva & lids normal, EOMI; Negative: Sclera icteric ENT Exam: Positive: Atraumatic, Mucous membr. moist/pink, Pharynx Normal Neck Exam: Positive: Supple; Negative: JVD, thyromegaly Chest Exam: Positive: Clear to auscultation, Normal air movement Heart Exam: Positive: Tachycardic, Regular Rhythm, Normal S1, Normal S2; Negative: Murmurs, Rubs Abdomen Exam: Positive: Normal bowel sounds, Soft, Other (protuberant ); Negative: Tenderness, Hepatospenomegaly Extremity Exam: Positive: Edema (bilateral LE edema), Normal pulses, Tenderness (R calf pain with palpation); Negative: Clubbing, Cyanosis Skin Exam: Positive: Nl turgor and temperature; Negative: Breakdown, Lesion Neuro Exam: Positive: Normal Gait, Normal Speech, Strength at 5/5 X4 ext, Cranial Nerves 3-12 NL Psych Exam: Positive: Mental status NL, Mood NL, Oriented x 3 Vital Signs Vital Signs Date Time Temp Pulse Resp B/P (MAP) Pulse Ox O2 Delivery O2 Flow Rate FiO2 12/02/20 13:36 24 12/02/20 13:19 99.6 119 104/62 96 Room Air Laboratory Data Labs 24H Laboratory Tests 2 12/02/20 10:32: Neutrophils (%) (Auto) , Reticulocyte # (auto) 48.3, Nucleated Red Blood Cells % (auto) 0.0, Neutrophils 63, Band Neutrophils 1, Lymphocytes (Manual) 5L, Monocytes (Manual) 12H, Myelocytes 4H, Atypical Lymphocytes 15H, Hypochromasia 1+, Anisocytosis 1+, Platelet Estimate NORMAL, Percent Reticulocyte Count 1.9H, Reticulocyte Hemoglobin Equivalent 25.7, Prothrombin Time 15.3H, Prothromb Time International Ratio 1.18, Activated Partial Thromboplast Time 38.3, Anion Gap 6L, Glomerular Filtration Rate > 60.0, Calcium Level 8.4L, Iron Level 11L, Total Iron Binding Capacity 99L, Transferrin % Saturation 11.1L, Ferritin 1739H, Total Bilirubin 0.3, Direct Bilirubin < 0.1, Aspartate Amino Transf (AST/SGOT) 15, Alanine Aminotransferase (ALT/SGPT) 19, Alkaline Phosphatase 123H, Total Protein 6.1L, Albumin 1.7L, Albumin/Globulin Ratio 0.4, Lipase 21L, Vitamin B12 Level > 2000H, Coronavirus (COVID-19)(PCR) NEGATIVE, Influenza Type A (RT-PCR) NEGATIVE, Influenza Type B (RT-PCR) NEGATIVE, Respiratory Syncytial Virus (PCR) NEGATIVE CBC/BMP Laboratory Tests 12/02/20 10:32 Assessment/Plan 59 yo M with recently diagnosed widely metastatic lung CA with known brain, bony and GI mets who was recently started on Keytruda/Alimta and carboplatin chemotherapy and radiation who presented to the ED from onc clinic with significant weakness, now chronic cancer related pain and found to have anemia to Hgb of 6.9 from recent baseline of ~8 and weakness with impaired ambulation. Anemia c/w AOCI on studies with no sequele of blood loss anemia -low Fe, high ferritin, Vit B12 wnl -consented for blood and type and screened --> pending 2u pRBCs -guaiac was negative and ROS was negative for potential significant GIB Newly noted RLE DVT -considering rivaroxaban at 15 BID, with plan for 20mg daily after 21 days --> heme/onc OK with having full dose AC (has known brain mets) and will closely monitor -likely 2/2 hypercoagulable state i/s/o metastatic lung CA, will need to be on anticoagulation for life -monitor daily CBC while inpatient while starting AC in anemic patient, despite no evidence of ongoing bleeding Metastatic lung CA with brain mets -chemo was deferred and he was sent to the ED for symptomatic anemia by his oncologist -Onc consult -norco 1 tab Q4HP, refill meds at discharge Physical deconditioning and weakness: -transfusion as noted above -PT/OT SIRS: leukocytosis, tachycardia with soft BPs -will check BCx, UA, and monitor. getting blood, may require fluids as well. -Otherwise nonfocal ROS from an infectious standpoint DVT ppx: Rivaroxaban Dispo: medicine Plan / VTE VTE Prophylaxis Ordered?: Yes CATALINO SERVIN MD Dec 02, 2020 14:26
[2020-12-02 15:00] VITALS: BP 105/72
[2020-12-02] MEDS ORDERED: ELIQ5TAB PO (16:06)
--- NOTE | 2020-12-02 16:19 | DS.PDOC ---
Discharge Summary General Date of Admission Dec 02, 2020 at 12:32 Date of Discharge 12/02/2020 Attending Physician: CATALINO SERVIN MD Discharge Summary PROCEDURES PERFORMED DURING STAY: None ADMITTING DIAGNOSES: Symptomatic anemia Intractable cancer related pain Metastatic lung cancer DISCHARGE DIAGNOSES: Symptomatic anemia, AOCI without evidence of acute blood loss anemia Intractable cancer related pain Metastatic lung cancer Newly noted RLE DVT COMPLICATIONS/CHIEF COMPLAINT: Intractable Pain. HISTORY OF PRESENT ILLNESS: 59 yo M with recently diagnosed widely metastatic lung CA with known brain, bony and GI mets who was recently started on Keytruda/Alimta and carboplatin chemotherapy and radiation who presented from onc clinic with significant weakness, chronic cancer related pain and found to have anemia to Hgb of 6.9 from recent baseline of ~8. He reports fair PO, diffuse pain at baseline with difficulty obtaining more pain medication through his pharmacy as he is told that he can only renew at a specific date though he often runs out. HOSPITAL COURSE: While in the ED, his BP was soft with SBP 90s, otherwise breathing comfortably on room air and afebrile. Workup was notable for WBC 14, hgb 6.9, platelets 254, Na 133, K 3.9, Cr 0.58, iron 11, ferritin 1739, Vit B12 >2000, retic % of 1.9, while guaiac was negative for blood per rectum. He had a bilateral LE edema and was found to have RLE DVT on Doppler venous US. Dr. eMek ordered 1u pRBCs and recommended admission to medicine for anemia, weakness with witnessed poor ambulation and even transfer and newly noted DVT. On speaking with Mr. Marie, he was adamant about returning home today after receiving blood because he has too much to do at home and his family lives far out of state. I discussed this at length with him and told him that I would highly recommend staying for medical optimization as he not only needs blood but infectious workup for a low grade temp, leukocytosis with tachycardia in an immunocompromised individual who feels weak and has a newly noted clot. He expressed understanding of the severity of his illness but still opted that he would sign out AMA after the 1st unit of blood. I told him that I would send a prescription for a blood thinner to his pharmacy and he is to follow up closely with oncology after Dr. Simeon was ok with starting anticoagulation but would ideal to watch closely for potential bleeding of brain mets but he refused to stay and expressed that he would take the medication and would follow up as an outpatient. DISCHARGE MEDICATIONS: Please see below. ALLERGIES: Please see below. PHYSICAL EXAMINATION ON DISCHARGE: VITAL SIGNS: Please see below. General: Alert, No Acute Distress, thin Eyes: PERRLA, Conjunctiva & lids normal, EOMI, anicteric ENT: Atraumatic, Mucous membr. moist/pink, Pharynx Normal Neck: Supple, no JVD, no thyromegaly Chest: Clear to auscultation, Normal air movement Heart: Tachycardic, Regular Rhythm, Normal S1, Normal S2, no m/r/g Abdomen: Normal bowel sounds, soft, protuberant, NTND Extremities: bilateral LE edema, R calf pain with palpation Skin: Nl turgor and temperature, no breakdown Neuro: Normal Gait, Normal Speech, Strength at 5/5 X4 ext, Cranial Nerves 3-12 NL Psych: Mental status NL, Mood NL, Oriented x 3 LABORATORY DATA: Please see below. IMAGING: RLE doppler venous US: There is occlusive thrombus in the right popliteal vein extending into the distal superficial femoral vein. Additionally there is occlusive thrombus in the profundus femoral vein extending into the common femoral vein. At the common femoral vein this is from his is nonocclusive. IMPRESSION: Right lower extremity deep vein occlusion of thrombus as described. Right lower extremity superficial vein occlusive and nonocclusive thrombus as described. PROGNOSIS: Fair, high risk for readmission with advanced metastatic disease and medical noncompliance ACTIVITY: As tolerated DIET: Regular DISCHARGE PLAN: AMA DISPOSITION: 07 Against Medical Advice. DISCHARGE INSTRUCTIONS: AMA. To begin eliquis as directed and follow up closely with onc ITEMS TO FOLLOWUP ON ON OUTPATIENT: DVT Anemia metastatic lung CA DISCHARGE CONDITION: Stable TIME SPENT ON DISCHARGE: 47 minutes. Vital Signs/I&Os Vital Signs Date Time Temp Pulse Resp B/P (MAP) Pulse Ox O2 Delivery O2 Flow Rate FiO2 12/02/20 15:00 100.4 122 18 105/72 (83) 96 Room Air Laboratory Data Labs 24H Laboratory Tests 2 12/02/20 10:32: Neutrophils (%) (Auto) , Reticulocyte # (auto) 48.3, Nucleated Red Blood Cells % (auto) 0.0, Neutrophils 63, Band Neutrophils 1, Lymphocytes (Manual) 5L, Monocytes (Manual) 12H, Myelocytes 4H, Atypical Lymphocytes 15H, Hypochromasia 1+, Anisocytosis 1+, Platelet Estimate NORMAL, Percent Reticulocyte Count 1.9H, Reticulocyte Hemoglobin Equivalent 25.7, Prothrombin Time 15.3H, Prothromb Time International Ratio 1.18, Activated Partial Thromboplast Time 38.3, Anion Gap 6L, Glomerular Filtration Rate > 60.0, Calcium Level 8.4L, Iron Level 11L, Total Iron Binding Capacity 99L, Transferrin % Saturation 11.1L, Ferritin 1739H, Total Bilirubin 0.3, Direct Bilirubin < 0.1, Aspartate Amino Transf (AST/SGOT) 15, A lanine Aminotransferase (ALT/SGPT) 19, Alkaline Phosphatase 123H, Total Protein 6.1L, Albumin 1.7L, Albumin/Globulin Ratio 0.4, Lipase 21L, Vitamin B12 Level > 2000H, Coronavirus (COVID-19)(PCR) NEGATIVE, Influenza Type A (RT-PCR) NEGATIVE, Influenza Type B (RT-PCR) NEGATIVE, Respiratory Syncytial Virus (PCR) NEGATIVE CBC/BMP Laboratory Tests 12/02/20 10:32 Discharge Medications Scheduled Apixaban (Eliquis) 5 Mg Tablet, 5 MG PO ASDIRECTED take 10mg twice daily for 7 days, then 5mg twice daily there after Calcium Carbonate/Vitamin D3 (Calcium 600-Vit D3 400 Tablet) 1 Each Tablet, 2 TAB PO DAILY Fentanyl (Fentanyl) 25 Mcg Patch.td72, 1 PATCH TOP Q3D for cancer pain Folic Acid (Folic Acid) 1 Mg Tablet, 1 TAB PO DAILY Scheduled PRN Hydromorphone HCl (Hydromorphone HCl) 4 Mg Tablet, 4 MG PO Q4HP PRN for breakthrough pain Ondansetron HCl (Ondansetron HCl) 8 Mg Tablet, 8 MG PO Q6H PRN for NAUSEA OR VOMITING Prochlorperazine Maleate (Prochlorperazine Maleate) 10 Mg Tablet, 10 MG PO Q6H PRN for NAUSEA OR VOMITING Miscellaneous Medications [Med Rec Comment] , (Reported) FENTANYL PATCH APPLIED TO LEFT SHOULDER, PT STATES WAS LAST APPLIED 3-4 DAYS AGO Allergies Coded Allergies: Penicillins (Verified Allergy, Unknown, THROAT SWELLS, 09/19/20) "almost " CATALINO SERVIN MD Dec 02, 2020 16:19
[2020-12-02] MEDS ORDERED: FENTANYL REMOVAL DOCUMENTATION MISC XX SCH (18:00)
[2020-12-02] MEDS ORDERED: fentaNYL 25 MCG/HR PATCH TOP SCH (18:00)
[2020-12-02] MEDS ORDERED: RIVAROXABAN 15 MG TAB (XARELTO) PO SCH (21:00)
== END 2020-12-02 15:56 | disposition left against medical advice (07) | DRG 663 ==
LOC: M ED 09:47 → M ED INP 12:32 → ENRESERV 13:57 → M MSPAV 15:02
PROVIDERS: ADMIT Internal Medicine; ATTEND Internal Medicine
PROC: 30233N1 Transfusion of Nonautologous Red Blood Cells into Peripheral Vein, Percutaneous Approach (ICD-10-PCS; principal; 2020-12-02)
DX: D64.9 Anemia, unspecified (principal); C79.31 Secondary malignant neoplasm of brain; C79.51 Secondary malignant neoplasm of bone; R65.10 Systemic inflammatory response syndrome (SIRS) of non-infectious origin without acute organ dysfunction; C78.89 Secondary malignant neoplasm of other digestive organs; I82.411 Acute embolism and thrombosis of right femoral vein; I82.431 Acute embolism and thrombosis of right popliteal vein; C34.90 Malignant neoplasm of unspecified part of unspecified bronchus or lung; G89.3 Neoplasm related pain (acute) (chronic); R53.1 Weakness; Z87.891 Personal history of nicotine dependence; Z79.899 Other long term (current) drug therapy; Z88.0 Allergy status to penicillin; Z20.822 Contact with and (suspected) exposure to COVID-19

== ENCOUNTER → 2020-12-09 | Outpatient (CLI) | payer OTHER ==
[~2020-12-09] MED LIST changes: +ELIQ5TAB PO; -FOLIC ACID 1 MG TAB PO SCH; +MED REC COMMENT
--- NOTE | 2020-12-09 15:46 | RADENCPD ---
Date/Time of Encounter Date of Encounter: Dec 09, 2020 Time of Encounter: 15:32 Encounter Met briefly with Jose today. He endorses continued pain which has been responsive to dilaudid 4 mg q6h. The pain is constant and emanating from the anterior chest extending posteriorly, 6/10. He also has pain in the BL hips, which had responded on the right transiently to palliative RT, but has now returned and is 6/10 as well. He has been using the 25 mcg fentanyl patch as well. He is overall confused about the plan for treatment. I personally clarified with Dr. Vasquez that Jose is scheduled for chemoimmunotherapy on 12/23/20. I expressed concern to him that although I have escalated his narcotic regimen, he is complaining of worsening pain. He is also more confused by his own admission compared to earlier in his course of therapy when he was more lucid. I am worried that the pain medication is contributing to this. He is as well and we agreed to discontinue the fentanyl patch. I have also personally arranged an appointment with palliative care, Kaila Bailey, who I hope will be able to more effectively manage his pain, as my attempts have been unsuccessful. This referral has been in the works for several weeks now and he has had several no shows. On review of his imaging to date, I do not see any metastatic correlate for his chest pain, and for the known right hip metastasis I would not recommend repeat RT at this time, given the short latency between treatments this would constitute. He agreed to palliative care follow up for pain. I will not prescribe additional narcotics. He will have follow up with me with MRI head in the next month (01/04/21 scan) AVI DEY MD Dec 09, 2020 15:46
== END ==
LOC: M ONCR 14:49
PROVIDERS: ATTEND General Practice
DX: C34.12 Malignant neoplasm of upper lobe, left bronchus or lung (principal)

== ENCOUNTER 2020-12-10 07:55 | Outpatient (CLI) | payer OTHER ==
[~2020-12-10 07:55] MED LIST changes: +ACETAMINOPHEN TAB 650MG DOSE (2X325MG) PO SCH; +SODIUM CHLORIDE 0.9% INJ 10 ML SYR IV PRN; +diphenhydrAMINE 25MG CAP PO SCH
[2020-12-10 08:00] VITALS: BP 120/68
[2020-12-10] MEDS ORDERED: SODIUM CHLORIDE 0.9% INJ 10 ML SYR IV SCH (09:00)
[2020-12-10 09:51] VITALS: BP 96/57
[2020-12-10 10:15] VITALS: BP 98/59
[2020-12-10 11:15] VITALS: BP 121/64
[2020-12-10 12:00] VITALS: BP 108/65
[2020-12-10 13:00] VITALS: BP 108/64
== END 2020-12-10 13:00 | disposition home or self-care (01) ==
LOC: M INFU 07:55
PROVIDERS: ATTEND Internal Medicine Hematology & Oncology
DX: C34.92 Malignant neoplasm of unspecified part of left bronchus or lung (principal); Z88.0 Allergy status to penicillin
CPT/HCPCS: 36430; 86850; 86900; 86901; 86920; P9016

== ENCOUNTER → 2021-01-05 | Outpatient (CLI) | payer OTHER ==
[~2021-01-05] MED LIST changes: -ACETAMINOPHEN TAB 650MG DOSE (2X325MG) PO SCH; +MORP1TAB19 PO; +PROHANCE 279.3MG/ML 15ML VIAL As Ordered ONE; -SODIUM CHLORIDE 0.9% INJ 10 ML SYR IV PRN; -diphenhydrAMINE 25MG CAP PO SCH
--- NOTE | 2021-01-05 14:50 | REP ---
INDICATION: BRAIN METS. COMPARISON: None. TECHNIQUE: Axial T1, T2, FLAIR, and gradient echo images of the brain are obtained. Multiplanar T1 post contrast imaging obtained. FINDINGS: No evidence of restricted diffusion to suggest acute infarction. No gradient echo susceptibility to suggest hemorrhage. The ventricles and extra-axial CSF spaces are within normal limits for age. No mass effect or midline shift. No abnormal fluid collections. Images of the cerebellum are obscured by pulsation artifact seen greatest at the level of the 4th ventricle. Ill-defined foci of apparent enhancement within the posterior fossa are not validated on FLAIR imaging and are likely artifactual secondary to this pulsation artifact. IMPRESSION: No acute findings. No definite metastases identified. Nonspecific white matter changes of small vessel ischemic disease. <Electronically signed by Roberto Richter > 01/05/21 [id number]
== END ==
LOC: M RAD 13:01
PROVIDERS: ATTEND General Practice
DX: C79.81 Secondary malignant neoplasm of breast (principal)
CPT/HCPCS: 70553; A9576

== ENCOUNTER → 2021-01-07 | Outpatient (CLI) | payer OTHER ==
[~2021-01-07] MED LIST changes: +K-TA10TA2 PO; -PROHANCE 279.3MG/ML 15ML VIAL As Ordered ONE
--- NOTE | 2021-01-07 15:38 | RADONC ---
Radiation Oncology Hx/FUP Radiation Oncology Hx/FUP Date of Service: Jan 07, 2021 Pt Identifier Jose Marie is a 60 year old male called for a telehealth followup visit today at the department of radiation oncology for a history of stage IV NSCLC currently on first-line chemoimmunotherapy who has also received multi-target SRS 27 Gy in 3 fractions completed 10/08/20 as well as palliative RT to the right hip 20 Gy in 5 fractions completed 10/22/20. Diagnosis/Treatment History Oncologic History Prior to August 2020 had minimal medical follow up. 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 August 2020: Noted onset of left scapular and BL leg pain. Had a soft tissue nodule over the left scapula which hurt. Pain prompted him to present to the ED on 09/11/20, was given antibiotic and sent home. Pain emerged in his left jaw and he developed headache as well as some non-specific blurry vision. Noted he has been losing weight. He came back to the hospital on 09/17/20 and was found on 09/19/20 CT chest to have a left hilar mass with probable satellitosis, mediastinal adenopathy and multiple bone metastases. CT abdomen on 09/18/20 with a perirectal mass, as well as possible adrenal metastasis on the left. He had an MRI head on 09/19/20 which showed multiple low volume subcentimeter metastases. A biopsy of his left scapular soft tissue lesion returned poorly differentiated carcinoma consistent with lung primary. Started on cis/pem/pem s/p cycle 3 on 12/23/20. Received SRS 27 Gy in 3 fractions completed 10/08/20 Received palliative RT to the right hip 20 Gy in 5 fractions completed 10/22/20 Recent data: 01/02/21 MRI head IMPRESSION: No acute findings. No definite metastases identified. Nonspecific white matter changes of small vessel ischemic disease. Interval History Jose reports he is feeling better in recent weeks with respect to pain. He reports that he is now able to sit comfortably in a chair. He is following with palliative care. His main sites of pain continue to be the ribs and the right hip. He gets CRYSTAL after walking for 10-20 minutes, which is better than before. He denies PHELPS, N, V. Notes regression of his subcutaneous nodules and lesions with the most recent cycle of chemotherapy. Current Therapy Cis/pem/pem s/p cycle 3 on 12/23/20 Stage NSCLC stage IVC Social History: Current smoker 50+ pack year history Drinks beer daily Allergies / Meds Allergies: Coded Allergies: Penicillins (Verified Allergy, Unknown, THROAT SWELLS, 09/19/20) "almost " Home Meds Active Scripts Apixaban (Eliquis) 5 Mg Tablet, 5 MG PO ASDIRECTED for 30 Days, #74 TAB take 10mg twice daily for 7 days, then 5mg twice daily there after Prov:CATALINO SERVIN MD 12/02/20 Fentanyl (Fentanyl) 25 Mcg Patch.td72, 1 PATCH TOP Q3D for cancer pain MDD 1 patch for 15 Days, #5 PATCH Prov:AVI DEY MD 11/26/20 Folic Acid (Folic Acid) 1 Mg Tablet, 1 TAB PO DAILY for 90 Days, #90 TAB 3 Refills Prov:GIGI VASQUEZ [facility] 11/13/20 Calcium Carbonate/Vitamin D3 (Calcium 600-Vit D3 400 Tablet) 1 Each Tablet, 2 TAB PO DAILY for 30 Days, #60 TAB 11 [facility]ills Prov[facility] 11/13/20 Prochlorperazine Maleate (Prochlorperazine Maleate) 10 Mg Tablet, 10 MG PO Q6H PRN for NAUSEA OR VOMITING, #30 TAB 3 Refills Prov:GUERLINE ALBA MD 10/21/20 Ondansetron HCl (Ondansetron HCl) 8 Mg Tablet, 8 MG PO Q6H PRN for NAUSEA OR VOMITING, #30 TAB 3 Refills Prov:GUERLINE ALBA MD 10/21/20 Reported Medications Morphine Sulfate (Morphine Sulfate Cr) 15 Mg Tablet.er, 1 TAB PO QID PRN for pain MDD 2 Tablet(s) for 5 Days, #10 TAB 12/23/20 [Med Rec Comment] No Conflict Check FENTANYL PATCH APPLIED TO LEFT SHOULDER, PT STATES WAS LAST APPLIED 3-4 DAYS AGO 12/02/20 Review of Systems Review of Systems Constitutional: Reports: ROS Unabtainable (Telehealth) Physical Examination Vital Signs N/A telehealth Neuro Exam: Positive: Normal Speech Psych Exam: Positive: Mental status NL, Mood NL, Memory Intact, Oriented x 3 Diagnostic and Laboratory Diagnostic Review Radiologic images, relevant labs and pathology reports were personally reviewed and discussed with Mr. Marie. Assessment and Plan Impression Assessment Mr. Marie is a 60 year old male called for a telehealth followup visit today at the department of radiation oncology for a history of stage IV NSCLC currently on first-line chemoimmunotherapy who has also received multi-target SRS 27 Gy in 3 fractions completed 10/08/20 as well as palliative RT to the right hip 20 Gy in 5 fractions completed 10/22/20. He is doing well with respect to pain control, being managed by palliative care. His MRI head is without evidence of recurrent or de tomeka metastases. He has body scans pending with Dr. Vasquez upcoming, explained these will be demonstrative, but based on his functional improvement and decrease in the size of the cutaneous metastases it is likely he is having a positive response. He does not have any need of additional palliative RT at this time. I will obtain another MRI head in 3 months time. Performance Status ECOG 2 Plan Follow up in 3 months with MRI head No need for additional palliative RT at this time Mr. Marie was encouraged to call with questions or concerns in the interim period. Billing Statement Total time of [16] minutes was spent preparing for the visit [1], obtaining HPI [4], examining the patient [0], reviewing diagnostic tests [2], discussing management options [2], coordinating care [1], and writing this note [6]. AVI DEY MD Jan 07, 2021 15:38
== END ==
LOC: M ONCR 14:55
PROVIDERS: ATTEND General Practice
DX: C34.12 Malignant neoplasm of upper lobe, left bronchus or lung (principal); C79.51 Secondary malignant neoplasm of bone; C79.31 Secondary malignant neoplasm of brain

== ENCOUNTER → 2021-02-10 | Outpatient (CLI) | payer OTHER ==
[~2021-02-10] MED LIST changes: +DEXA1OPD OP
== END ==
LOC: M ONCR 16:12
PROVIDERS: ATTEND General Practice
DX: C34.12 Malignant neoplasm of upper lobe, left bronchus or lung (principal); C79.51 Secondary malignant neoplasm of bone; C79.31 Secondary malignant neoplasm of brain

== ENCOUNTER → 2021-04-08 | Outpatient (CLI) | payer OTHER ==
[~2021-04-08] MED LIST changes: -DOXY100C37 PO; +DOXY1CAP62 PO; +PROHANCE 279.3MG/ML 15ML VIAL As Ordered ONE
--- NOTE | 2021-04-08 14:54 | REPVR ---
PROCEDURE INFORMATION: Exam: MR Head Without and With Contrast Exam date and time: 04/08/2021 12:21 PM Age: 60 years old Clinical indication: Condition or disease; History of cancer (specify primary cancer site): ; Primary cancer: Lung; Additional info: Brain mets TECHNIQUE: Imaging protocol: MR of the head without and with intravenous contrast. Contrast material: PROHANCE; Contrast volume: 13 ml; Contrast route: INTRAVENOUS (IV); COMPARISON: MRI-Brain W/O FOLL BY WITH 01/05/2021 1:38 PM FINDINGS: Brain: There is no acute intracranial hemorrhage, cerebral edema, or midline shift. No restricted diffusion is present to suggest acute infarction. Advanced for age chronic small vessel ischemic disease is present in the cerebral white matter and scott. No enhancing lesions were identified after the administration of contrast. Cerebral ventricles: No hydrocephalus. Bones/joints: Unremarkable. Paranasal sinuses: Mild mucosal thickening is present in the maxillary sinuses. Mastoid air cells: Normal as visualized. No mastoid effusion. Orbital cavity: Unremarkable. Soft tissues: Unremarkable. IMPRESSION: 1. No acute abnormality. 2. Chronic findings as discussed above. Electronically signed by: Mendez Holley On 04/08/2021 14:54:36 PM
--- NOTE | 2021-04-08 15:45 | RADONC ---
Radiation Oncology Hx/FUP Radiation Oncology Hx/FUP Date of Service: Apr 08, 2021 Pt Identifier Jose Marie is a 60 year old male smoker with a history of stage IV NSCLC currently on first-line chemoimmunotherapy who has also received multi-target SRS 27 Gy in 3 fractions completed 10/08/20 as well as palliative RT to the right hip 20 Gy in 5 fractions completed 10/22/20. He is seen today for MRI follow up and survivorship care. Diagnosis/Treatment History Oncologic History Prior to August 2020 had minimal medical follow up. 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 August 2020: Noted onset of left scapular and BL leg pain. Had a soft tissue nodule over the left scapula which hurt. Pain prompted him to present to the ED on 09/11/20, was given antibiotic and sent home. Pain emerged in his left jaw and he developed headache as well as some non-specific blurry vision. Noted he has been losing weight. He came back to the hospital on 09/17/20 and was found on 09/19/20 CT chest to have a left hilar mass with probable satellitosis, mediastinal adenopathy and multiple bone metastases. CT abdomen on 09/18/20 with a perirectal mass, as well as possible adrenal metastasis on the left. He had an MRI head on 09/19/20 which showed multiple low volume subcentimeter metastases. A biopsy of his left scapular soft tissue lesion returned poorly differentiated carcinoma consistent with lung primary. Received SRS 27 Gy in 3 fractions completed 10/08/20 Received palliative RT to the right hip 20 Gy in 5 fractions completed 10/22/20 Started on cis/pem/pem s/p cycle 3 on 12/23/20. Cycle 5 completed 02/17/21 01/02/21 MRI head negative for residual or de tomeka metastases Interval History Jose is doing very well, no pain and minimal SOB at this time. He is gaining weight, cutaneous metastases have regressed completely. No N, V, PHELPS. No fevers or chills. 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 He does occasional feels chest tightness when he lifts things, but this resolves when he rests, thinks its more due to muscle loss than anything breathing or heart related. With regard to medical oncology follow up he lost his steady rides to and from appointments so he did not follow up as planned for scans and treatment the last 6 weeks. Current Therapy Maintenance alimta, pembro pending. Stage NSCLC stage IVC Social History: Current smoker 50+ pack year history Drinks beer daily Allergies / Meds Allergies: Coded Allergies: Penicillins (Verified Allergy, Unknown, THROAT SWELLS, 09/19/20) "almost " Home Meds Active Scripts Dexamethasone Sod Phos (Dexamethasone Sodium Phosphate) 0.1% Drops, 1 DROP OP QID, #5 ML Prov:GIGI PETERSONCP 02/10/21 Potassium Chloride (K-Tab ER) 10 Meq Tablet.er, 1 TAB PO DAILY for low potassium for 30 Days, #30 TAB one daily with meals Prov:GIGI PETERSONCP 01/13/21 Review of Systems Review of Systems Constitutional: Denies: Chills, Fever, Fatigue, Weight Loss Eyes: Denies: Pain HEENT: Denies: Head Aches Skin: Denies: Rash, Lesions Pulmonary: Denies: Dyspnea, Cough Cardiovascular: Denies: Chest Pain, Palpitations, Edema Gastrointestinal: Denies: Nausea, Vomiting, Abdominal Pain Musculoskeletal: Denies: Neck pain, Back pain Neurological: Denies: Weakness, Numbness Psych: Reports: Mood Normal Physical Examination Vital Signs Wt 154 lbs T 96.7 P 72 RR 18 BP 131/76 O2 100% Pain 0 Fatigue 0 General Exam: Positive: Alert, Cooperative, No Acute Distress Eye Exam: Positive: PERRLA, EOMI ENT EXAM: Positive: Atraumatic, Pharynx Normal Neck Exam: Positive: Supple, Other (Posterior neck lesions have resolved, no palpable lumps or abnormalities, there is hyperpigmented skin overlying the site of prior cutaneous metastasis left lower posterior neck); Negative: Lymphadenopathy Chest Exam: Positive: Clear to auscultation, Normal air movement; Negative: Wheezing Heart Exam: Positive: Rate Normal, Regular Rhythm Abdomen Exam: Positive: Soft; Negative: Tenderness Extremity Exam: Negative: Edema Skin Exam: Positive: Nl turgor and temperature Neuro Exam: Positive: Normal Gait, Normal Speech, Cranial Nerves 3-12 NL Psych Exam: Positive: Mental status NL Diagnostic and Laboratory Diagnostic Review Radiologic images, relevant labs and pathology reports were personally reviewed and discussed with Mr. Marie. Assessment and Plan Impression Assessment Mr. Marie is a 60 year old male smoker with a history of stage IV NSCLC currently on first-line chemoimmunotherapy who has also received multi-target SRS 27 Gy in 3 fractions completed 10/08/20 as well as palliative RT to the right hip 20 Gy in 5 fractions completed 10/22/20. He is seen today for MRI follow up and survivorship care. He is doing remarkably well considering his condition at presentation over the winter. He has no pain, his MRI shows a complete response to SRS. I will repeat surveillance MRI in 3-4 months. With respect to his medical oncology follow up, I will ensure that he has a rescheduled appointment and rides to and from this and restaging body scans w hich I will order to be done immediately. He has done so well, I do think that he ought to have maintenance keytruda at least, if not in conjunction with alimta as well. Jose asked about a portable oxygen concentrator, which I have been trying to facilitate. I asked that we hold off on pursuing this given his excellent pulmonary status in the last 2 weeks and pending the CT scans. He agreed. Performance Status ECOG 0 Plan MRI head 3-4 months, follow up with me at that time Restaging CT chest abdomen and pelvis now Medical oncology follow up in next 1-2 weeks to discuss maintenance therapy Nurse navigator referral for rides Mr. Marie was encouraged to call with questions or concerns in the interim period. Billing Statement Total time of [33] minutes was spent preparing for the visit [1], obtaining HPI [5], examining the patient [3], reviewing diagnostic tests [4], discussing management options [7], coordinating care [5], and writing this note [8]. AVI DEY MD Apr 08, 2021 15:45
== END ==
LOC: M RAD 10:25
PROVIDERS: ATTEND General Practice
DX: C79.31 Secondary malignant neoplasm of brain (principal)
CPT/HCPCS: 70553; A9576

== ENCOUNTER → 2021-04-08 | Outpatient (CLI) | payer OTHER ==
[~2021-04-08] MED LIST changes: -PROHANCE 279.3MG/ML 15ML VIAL As Ordered ONE
== END ==
LOC: M ONCR 14:00
PROVIDERS: ATTEND General Practice
DX: C34.12 Malignant neoplasm of upper lobe, left bronchus or lung (principal); C79.51 Secondary malignant neoplasm of bone; C79.31 Secondary malignant neoplasm of brain; F17.210 Nicotine dependence, cigarettes, uncomplicated; Z88.0 Allergy status to penicillin; Z92.21 Personal history of antineoplastic chemotherapy; Z92.3 Personal history of irradiation

== ENCOUNTER → 2021-04-14 | Outpatient (CLI) | payer OTHER ==
[~2021-04-14] MED LIST changes: +E-Z-GAS II EFFERVESCENT PACKET (SODIUM BICARB./CITRIC ACID/SIMETHICONE) As Ordered ONE; +E-Z-HD 98% w/w 340GM SUSP BTL As Ordered ONE; +E-Z-PAQUE 96% w/w SUSP 176GM BTL As Ordered ONE; +FOLI400T13 PO; +GASTROGRAFIN SOLUTION 30ML (Q9963) As Ordered ONE; +ISOVUE-370 76% 100ML VIAL As Ordered ONE
--- NOTE | 2021-04-14 15:57 | REP ---
INDICATION: LUNG CA COMPARISON: 09/19/2020 TECHNIQUE: Standard helical technique after the intravenous administration of 100 cc Isovue 370 FINDINGS: The left hilar mass seen previously has gotten significantly smaller and today measures approximately 1.4 x 1.4 by 1.8 cm. There is no right hilar adenopathy. Small unchanged mediastinal lymph nodes are again noted. There is no dangelo mediastinal adenopathy. There are no pleural or pericardial effusions. There is no significant change in appearance of the imaged upper abdomen. Once again, there are numerous nodules in left upper quadrant likely splenules. There are, however, right upper quadrant nodules in Yarbrough's pouch region having a similar appearance. One of these measures 2.5 cm in greatest dimension in the other measures 2.2 cm in greatest dimension. These are also unchanged. Bone window technique throughout the exam now shows numerous mixed lytic and blastic appearing lesions involving L3, L1, T12, T9, T6, T3, and T1 with compression fracture seen involving T1 superior endplate, T3 mild superior endplate, T6 grade 4 compression fracture, T9 grade 2/3 compression fracture, and T12 lytic lesion superior endplate. All but the T12 lytic lesion represents a change from the prior exam. Additionally, there are scattered areas of blastic appearing type rib lesions which also represent a change from the prior exam. Evaluation of the lung loera shows scattered asymmetric lung parenchymal densities which are essentially unchanged there is a new pleural based asymmetric density seen in the apicoposterior segment of the left upper lobe abutting the major fissure and measuring approximately 1.6 x 0.9 cm. Note is again made of emphysematous changes and cylindrical bronchiectasis status quo. IMPRESSION: 1. Left hilar mass as described above. 2. Upper abdominal findings as described above which needs to be correlated clinically with appropriate follow-up. 3. Lung field findings as described above. 4. Diffuse skeletal metastatic lesions as described above. <Electronically signed by Cristofer Quinones > 04/14/21 [id number]
--- NOTE | 2021-04-14 16:14 | REP ---
INDICATION: LUNG CA. COMPARISON: 09/18/2020 the only prior a noncontrast enhanced exam TECHNIQUE: Standard helical technique after the intravenous administration of 100 cc Isovue 370 and bowel preparatory contrast administration. FINDINGS: The liver, gallbladder, pancreas, adrenal glands, and kidneys are within normal limits. The spleen is again not visualized, however, multiple enhancing nodules are seen in the left upper quadrant at least some of which have the appearance of splenules unchanged. The abdominal aorta and para-aortic regions are essentially unchanged. No adenopathy has developed. There is no evidence of free fluid or free air. The bowel loops are within normal limits. Inferior to the posterior panic at edge there are 2 enhancing nodules 1 measures 2.4 x 1.9 cm and the other measures 1.7 by 2 cm these were also present on the prior exam and appear unchanged. There are multiple pelvic masses. These are unchanged. There is an enhancing right adrenal gland mass which is unchanged in size. Bone window technique throughout the exam shows a blastic appearing right kayden pelvic lesion with scattered lysis particularly affecting the acetabulum. Again, this affects the quadrilateral plate and medial acetabular wall. IMPRESSION: 1. Intra-abdominal and intrapelvic enhancing nodules and masses as described above. 2. Evidence of metastatic disease as described above. 3. Other findings as described above. <Electronically signed by Cristofer Quinones > 04/14/21 [id number]
== END ==
LOC: M RAD 13:25
PROVIDERS: ATTEND Internal Medicine Hematology & Oncology
DX: C79.31 Secondary malignant neoplasm of brain (principal)
CPT/HCPCS: 71260; 74177; Q9963; Q9967

== ENCOUNTER → 2021-06-24 | Outpatient (CLI) | payer OTHER ==
[~2021-06-24] MED LIST changes: -E-Z-GAS II EFFERVESCENT PACKET (SODIUM BICARB./CITRIC ACID/SIMETHICONE) As Ordered ONE; -E-Z-HD 98% w/w 340GM SUSP BTL As Ordered ONE; -E-Z-PAQUE 96% w/w SUSP 176GM BTL As Ordered ONE; -GASTROGRAFIN SOLUTION 30ML (Q9963) As Ordered ONE; -ISOVUE-370 76% 100ML VIAL As Ordered ONE; +OYST500T92 PO; +PROHANCE 279.3MG/ML 15ML VIAL As Ordered ONE; +TRIA1CR80 TOP
--- NOTE | 2021-06-25 22:54 | REPVR ---
PROCEDURE INFORMATION: Exam: MR Head Without and With Contrast Exam date and time: 06/24/2021 1:27 PM Age: 60 years old Clinical indication: Other: Met lung / brain mets TECHNIQUE: Imaging protocol: MR of the head without and with intravenous contrast. Contrast material: PROHANCE; Contrast volume: 13 ml; Contrast route: INTRAVENOUS (IV); COMPARISON: MRI-Brain W/O FOLL BY WITH 04/08/2021 11:29 AM FINDINGS: Brain: There is no evidence of acute stroke on the diffusion weighting. There are few scattered areas of bright signal intensity within the white matter consistent with chronic ischemic changes. There is a linear area bright signal intensity on the FLAIR sequence at the right IAC which is less apparent than 04/08/2021. After the injection of contrast there is no evidence of a mass at the right IAC. There is no evidence of abnormal enhancement within the brain to suggest metastasis. Cerebral ventricles: Normal ventricles. Bones/joints: Unremarkable. Paranasal sinuses: Normal as visualized. No acute sinusitis. Mastoid air cells: Normal as visualized. No mastoid effusion. Orbital cavity: Unremarkable. Soft tissues: Unremarkable. Vessels of the [id number] have normal signal void. IMPRESSION: No evidence of metastatic lesion to the brain. Electronically signed by: Ranulfo Montenegro On 06/25/2021 22:53:37 PM
== END ==
LOC: M RAD 12:35
PROVIDERS: ATTEND General Practice
DX: C79.31 Secondary malignant neoplasm of brain (principal); C78.00 Secondary malignant neoplasm of unspecified lung
CPT/HCPCS: 70553; A9576

== ENCOUNTER → 2021-07-01 | Outpatient (CLI) | payer OTHER ==
[~2021-07-01] MED LIST changes: +OYST500T12; -PROHANCE 279.3MG/ML 15ML VIAL As Ordered ONE
--- NOTE | 2021-07-01 11:30 | RADONC ---
Radiation Oncology Hx/FUP Radiation Oncology Hx/FUP Date of Service: Jul 01, 2021 Pt Identifier Jose Marie is a 60 year old male seen for a followup visit today at the department of radiation oncology for a history of stage IV NSCLC currently on first-line chemoimmunotherapy who has also received multi-target SRS 27 Gy in 3 fractions completed 10/08/20 as well as palliative RT to the right hip 20 Gy in 5 fractions completed 10/22/20. He is seen today for MRI follow up and survivorship care. Diagnosis/Treatment History Oncologic History Prior to August 2020 had minimal medical follow up. 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 August 2020: Noted onset of left scapular and BL leg pain. Had a soft tissue nodule over the left scapula which hurt. Pain prompted him to present to the ED on 09/11/20, was given antibiotic and sent home. Pain emerged in his left jaw and he developed headache as well as some non-specific blurry vision. Noted he has been losing weight. He came back to the hospital on 09/17/20 and was found on 09/19/20 CT chest to have a left hilar mass with probable satellitosis, mediastinal adenopathy and multiple bone metastases. CT abdomen on 09/18/20 with a perirectal mass, as well as possible adrenal metastasis on the left. He had an MRI head on 09/19/20 which showed multiple low volume subcentimeter metastases. A biopsy of his left scapular soft tissue lesion returned poorly differentiated carcinoma consistent with lung primary. Received SRS 27 Gy in 3 fractions completed 10/08/20 Received palliative RT to the right hip 20 Gy in 5 fractions completed 10/22/20 Started on cis/pem/pem s/p cycle 3 on 12/23/20. Cycle 5 completed 02/17/21, continued on pembrolizumab maintenance 01/02/21 MRI head negative for residual or de toemka metastases 04/08/21 MRI head, negative for de tomeka or progressive metastases 04/14/21 CT C/A/P Stable disease Recent imagin06/25/21 MRI head treated metastases stable, new 0.3 cm focus of enhancement in the left posterior parietal lobe suspicious for metastasis Interval History Jose has some ongoing nausea and fatigue related to alimta/keytruda, zofran and compazine help this. He has no neurologic complaints. No recrudescence of cutaneous metastases. No pain in the right hip. Only source of pain is intermittent left foot pain, sharp, erratic, short duration. Overall this is not bothersome for him. Current Therapy Alimta/Keytruda Stage NSCLC stage IVC Social History: Current smoker 50+ pack year history Drinks beer daily Allergies / Meds Allergies: Coded Allergies: Penicillins (Verified Allergy, Unknown, THROAT SWELLS, 09/19/20) "almost " Home Meds Active Scripts Calcium Carbonate/Vitamin D3 (Calcium 500-Vit D3 200 Tablet) 1 Each Tablet, 1 TAB PO BID for 30 Days, #60 TAB Prov:PETERSON,GIGI MDFRCP 06/01/21 Folic Acid (Folic Acid) 1 Mg Tablet, 1 TAB PO DAILY for 30 Days, #30 TAB Prov:PETERSON,GIGI MDFRCP 06/01/21 Reported Medications Calcium Carbonate/Vitamin D3 (Oyster Shell 500-Vit D3 200 Tb) 1 Each Tablet 07/01/21 Review of Systems Review of Systems Constitutional: Reports: Fatigue, Weight Loss Eyes: Denies: Pain HEENT: Denies: Head Aches Skin: Denies: Rash Pulmonary: Denies: Dyspnea, Cough Cardiovascular: Denies: Chest Pain, Edema Gastrointestinal: Reports: Nausea; Denies: Vomiting, Abdominal Pain Musculoskeletal: Reports: Foot pain; Denies: Neck pain, Shoulder pain Neurological: Denies: Weakness, Numbness Psych: Reports: Mood Normal Physical Examination Vital Signs Wt 149 lbs T 98 P 107 RR 20 BP 116/78 O2 94% Pain 0 Fatigue 1 General Exam: Alert, Cooperative, No Acute Distress Eye Exam: PERRLA, EOMI ENT EXAM: Atraumatic Neck Exam: Supple Chest Exam: Clear to auscultation, Normal air movement Heart Exam: Rate Normal Abdomen Exam: Soft; Negative: Tenderness Extremity Exam: Other (Left foot without visible cutaneous lesions or palpable mass. No tenderness to palpation) Skin Exam: Negative: Lesion Neuro Exam: Normal Gait, Normal Speech, Cranial Nerves 3-12 NL Psych Exam: Mental status NL Diagnostic and Laboratory Diagnostic Review Radiologic images, relevant labs and pathology reports were personally reviewed and discussed with Mr. Marie. Assessment and Plan Impression Assessment Mr. Marie is a 60 year old male with a history of stage IV NSCLC currently on first-line chemoimmunotherapy who has also received multi-target SRS 27 Gy in 3 fractions completed 10/08/20 as well as palliative RT to the right hip 20 Gy in 5 fractions completed 10/22/20. He is seen today for MRI follow up and survivorship care. He has a possible 0.3 cm lesion in the left posterior parietal which looks like a new metastasis, as this entirely asymptomatic we discussed observation with another MRI in 3 months, if growing at that time we will treat with SRS. I reviewed this and his other most recent scans with him in detail. We also discussed the pain in his left foot which showed marked uptake on his bone scan from last year, this is likely from metastasis, but he prefers to observe at this time which is reasonable. For his nausea I will refill his zofran/compazine. Performance Status ECOG 1 Plan MRI head in 3 months Mr. Marie was encouraged to call with questions or concerns in the interim period. Billing Statement Total time of [36] minutes was spent preparing for the visit [2], obtaining HPI [4], examining the patient [4], reviewing diagnostic tests [7], discussing management options [7], coordinating care [3], and writing this note [9]. AVI DEY MD Jul 01, 2021 11:30
== END ==
LOC: M ONCR 09:26
PROVIDERS: ATTEND General Practice
DX: C34.12 Malignant neoplasm of upper lobe, left bronchus or lung (principal); F17.210 Nicotine dependence, cigarettes, uncomplicated; Z88.0 Allergy status to penicillin; Z92.23 Personal history of estrogen therapy; Z92.3 Personal history of irradiation

== ENCOUNTER → 2021-07-06 | Outpatient (CLI) | payer OTHER ==
[~2021-07-06] MED LIST changes: +DOXY-443 PO; -DOXY1CAP62 PO; +GASTROGRAFIN SOLUTION 30ML (Q9963) As Ordered ONE; +ISOVUE-370 76% 100ML VIAL As Ordered ONE
--- NOTE | 2021-07-08 05:20 | REP ---
INDICATION: LUNG CANCER COMPARISON: 04/14/2021, 09/19/2020 TECHNIQUE: Axial contrast enhanced images from the thoracic inlet to the upper abdomen with coronal and sagittal reformations using 75 ml Isovue 370 intravenous contrast material. This CT examination was performed using the following dose reduction techniques: Automated exposure control, adjustment of mA and/or kv according to the patient's size, and use of iterative reconstruction technique. FINDINGS: The left hilar mass demonstrates significant enlargement now measuring 2.2 cm maximal diameter and previously measuring 1.8 cm maximal diameter. The previously mentioned new area of density along the lateral aspect of the left upper lobe (series 204; image 52) has decreased in size. The smaller scattered somewhat ill-defined areas of airspace disease with marginal spiculations and central foci of solid nodularity are relatively unchanged as compared with 03/25/2021 examination, and no obvious new areas of opacity are identified. Mild hilar adenopathy is unchanged. 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 No effusion. No pneumothorax. Tracheobronchial tree is patent. Further evaluation of the mediastinum demonstrates stable atherosclerotic changes to the thoracic aorta and coronary arteries. No cardiomegaly or pericardial effusion. No aortic aneurysm or dissection. Note is again made of pathologic fractures involving T1, T3, T6, T9, T12, and L1. IMPRESSION: 1. Left perihilar mass versus adenopathy has visibly increased in size from prior examination. 2. Remainder of the scattered foci of parenchymal abnormality are either stable or slightly decreased from prior examination as noted above. No new lesions are identified. 3. Pathologic changes to the thoracolumbar spine again noted. <Electronically signed by Galindo Taylor > 07/08/21 [id number]
--- NOTE | 2021-07-08 05:32 | REP ---
INDICATION: LUNG CANCER. COMPARISON: 04/14/2021, 09/18/2020 TECHNIQUE: Axial contrast-enhanced images from the lung bases to the pubic symphysis using 100 cc Isovue 370 intravenous contrast material. Delayed images of the abdomen along with coronal and sagittal reformations obtained. This CT examination was performed using the following dose reduction techniques: Automated exposure control, adjustment of mA and/or kv according to the patient's size, and the use of iterative reconstruction technique. FINDINGS: Liver, pancreas, gallbladder, bilateral adrenal glands and kidneys are normal. A normal spleen is not identified in the left upper quadrant and multiple homogeneously enhancing nodular densities in the left upper quadrant as well as along the posterior margin of the liver just lateral to the right kidney and similar homogeneously enhancing lesions within the deep pelvis are identified and appear relatively similar/stable through 09/18/2020 examination. These may represent scattered splenules and should be correlated with the patient's history. Metastatic lesions given the history of lung cancer must also be considered within differential diagnosis although less likely given the relative stability. The enteric system including stomach, small, and large bowel appears normal. No evidence for obstruction or acute inflammatory process. Few scattered sigmoid diverticula noted without acute diverticulitis.. Pelvis demonstrates normal bladder and age-appropriate prostate/seminal vesicles. No ascites. No free air. No intraperitoneal or retroperitoneal adenopathy. Abdominal aorta and vasculature appear normal. Osseous structures demonstrate presumed pathologic changes at L3 with a large blastic lesion as well as heterogeneous presumed neoplastic changes through the pelvis and right hip similar to 04/14/2021 examination. IMPRESSION: 1. Homogeneously enhancing scattered lesions as described above remain relatively stable compared through 2019 examination and likely represent splenules given the lack of normal spleen in the left upper quadrant. Less likely metastatic disease. 2. Stable pathologic metastatic osseous changes. 3. No new acute abdominopelvic pathology appreciated. <Electronically signed by Galindo Taylor > 07/08/21 [id number]
== END ==
LOC: M RAD 14:39
PROVIDERS: ATTEND Internal Medicine Medical Oncology
DX: C34.91 Malignant neoplasm of unspecified part of right bronchus or lung (principal)
CPT/HCPCS: 71260; 74177; Q9963; Q9967

== ENCOUNTER → 2021-10-28 | Outpatient (CLI) | payer OTHER ==
[~2021-10-28] MED LIST changes: -GASTROGRAFIN SOLUTION 30ML (Q9963) As Ordered ONE; -ISOVUE-370 76% 100ML VIAL As Ordered ONE; +ONDA-84 PO; -ONDA8TAB10 PO; -PROC10TA4 PO; +PROC10TA5 PO
== END ==
LOC: M ONCR 11:23
PROVIDERS: ATTEND General Practice
DX: C34.12 Malignant neoplasm of upper lobe, left bronchus or lung (principal); C79.31 Secondary malignant neoplasm of brain; C79.51 Secondary malignant neoplasm of bone; F17.210 Nicotine dependence, cigarettes, uncomplicated; Z79.899 Other long term (current) drug therapy; Z88.0 Allergy status to penicillin

== ENCOUNTER 2021-11-09 10:25 | Outpatient (RCR) | payer OTHER ==
[2021-11-19] MEDS ORDERED: MORP-69 PO (13:04)
== END 2021-11-16 ==
LOC: M ONCR 10:25
PROVIDERS: ATTEND General Practice
DX: C79.31 Secondary malignant neoplasm of brain (principal)

== ENCOUNTER 2021-11-20 12:08 | Outpatient (RCR) | payer OTHER ==
[2021-12-21] MEDS ORDERED: DEXA4TA PO (10:05)
== END 2021-12-17 ==
LOC: M ONCR 12:08
PROVIDERS: ATTEND General Practice
DX: C79.31 Secondary malignant neoplasm of brain (principal)

== ENCOUNTER → 2021-12-09 | Outpatient (CLI) | payer OTHER ==
[~2021-12-09] MED LIST changes: +GASTROGRAFIN SOLUTION 30ML (Q9963) As Ordered ONE; +ISOVUE-370 76% 100ML VIAL As Ordered ONE
== END ==
LOC: M RAD 09:59
PROVIDERS: ATTEND Internal Medicine Medical Oncology
DX: C34.90 Malignant neoplasm of unspecified part of unspecified bronchus or lung (principal)
CPT/HCPCS: 71260; 74177; Q9963; Q9967

== ENCOUNTER → 2022-02-23 | Outpatient (CLI) | payer OTHER ==
[~2022-02-23] MED LIST changes: -GASTROGRAFIN SOLUTION 30ML (Q9963) As Ordered ONE; -ISOVUE-370 76% 100ML VIAL As Ordered ONE
== END ==
LOC: M ONCR 10:00
PROVIDERS: ATTEND General Practice
DX: C34.12 Malignant neoplasm of upper lobe, left bronchus or lung (principal); C79.31 Secondary malignant neoplasm of brain; C79.51 Secondary malignant neoplasm of bone; F17.210 Nicotine dependence, cigarettes, uncomplicated; Z88.0 Allergy status to penicillin; Z92.21 Personal history of antineoplastic chemotherapy; Z92.3 Personal history of irradiation

== ENCOUNTER → 2022-03-18 | Outpatient (RCR) | payer OTHER | LOC: M ONCR 03-04 10:19 | PROVIDERS: ATTEND General Practice | DX: C79.51 Secondary malignant neoplasm of bone (principal) ==

== ENCOUNTER 2022-03-24 12:07 | Outpatient (RCR) | payer OTHER ==
[~2022-03-24 12:07] MED LIST changes: +LIDO2SOL17 PO
[2022-04-13] MEDS ORDERED: GABA-282 PO (11:00)
== END 2022-04-18 ==
LOC: M ONCR 12:07
PROVIDERS: ATTEND General Practice
DX: C79.51 Secondary malignant neoplasm of bone (principal); C79.31 Secondary malignant neoplasm of brain; C34.12 Malignant neoplasm of upper lobe, left bronchus or lung

== ENCOUNTER → 2022-04-29 | Outpatient (CLI) | payer OTHER ==
[~2022-04-29] MED LIST changes: +GABA-282 PO; +PROHANCE 279.3MG/ML 15ML VIAL As Ordered ONE
== END ==
LOC: M RAD 11:16
PROVIDERS: ATTEND General Practice
DX: C79.31 Secondary malignant neoplasm of brain (principal)
CPT/HCPCS: 70553; A9576

== ENCOUNTER → 2022-05-20 | Outpatient (CLI) | payer OTHER ==
[~2022-05-20] MED LIST changes: +GASTROGRAFIN SOLUTION 30ML (Q9963) As Ordered ONE; +ISOVUE-370 76% 100ML VIAL As Ordered ONE; +PERI12LIQ; -PROHANCE 279.3MG/ML 15ML VIAL As Ordered ONE
== END ==
LOC: M RAD 10:39
PROVIDERS: ATTEND Internal Medicine Medical Oncology
DX: C34.90 Malignant neoplasm of unspecified part of unspecified bronchus or lung (principal)
CPT/HCPCS: 71260; 74177; Q9963; Q9967

== ENCOUNTER → 2022-06-10 | Outpatient (CLI) | payer OTHER ==
[~2022-06-10] MED LIST changes: -GASTROGRAFIN SOLUTION 30ML (Q9963) As Ordered ONE; -ISOVUE-370 76% 100ML VIAL As Ordered ONE
== END ==
LOC: M RAD 10:28
PROVIDERS: ATTEND Internal Medicine Medical Oncology
DX: C34.90 Malignant neoplasm of unspecified part of unspecified bronchus or lung (principal)
CPT/HCPCS: 78306; A9503

== ENCOUNTER → 2022-08-02 | Outpatient (CLI) | payer OTHER ==
[~2022-08-02] MED LIST changes: +SODIUM CHLORIDE 0.9% INJ 10 ML SYR IV PRN
== END ==
LOC: M ONCR 14:01
PROVIDERS: ATTEND General Practice
DX: C79.31 Secondary malignant neoplasm of brain (principal)
CPT/HCPCS: 36591; J1642

== ENCOUNTER → 2022-08-09 | Outpatient (CLI) | payer OTHER ==
[2022-08-09 12:38] LABS: ALBUMIN 3.1 G/DL (3.2-5.2); ALT/SGPT < 9 U/L (7.0-40); BILIRUBIN,TOTAL 0.2 MG/DL (0.3-1.2); BLOOD UREA NITROGEN 13 MG/DL (9-23); CALCIUM LEVEL 8.3 MG/DL (8.3-10.6); CARBON DIOXIDE LEVEL 28 MMOL/L (20-31); CHLORIDE LEVEL 103 MMOL/L (98-107); CREATININE FOR GFR 0.64 MG/DL (0.70-1.30); GLOMERULAR FILTRATION RATE > 60.0 (>49); GLUCOSE, FASTING 90 MG/DL (74-106); POTASSIUM SERUM 3.9 MMOL/L (3.5-5.1); SODIUM LEVEL 137 MMOL/L (136-145); TOTAL PROTEIN 6.2 G/DL (5.7-8.2)
== END ==
LOC: M ONCR 11:24
PROVIDERS: ATTEND General Practice
DX: C79.31 Secondary malignant neoplasm of brain (principal)

== ENCOUNTER → 2022-08-16 | Outpatient (CLI) | payer OTHER ==
[~2022-08-16] MED LIST changes: +PROHANCE 279.3MG/ML 15ML VIAL As Ordered ONE; -SODIUM CHLORIDE 0.9% INJ 10 ML SYR IV PRN
== END ==
LOC: M RAD 10:55
PROVIDERS: ATTEND General Practice
DX: C79.31 Secondary malignant neoplasm of brain (principal)
CPT/HCPCS: 70553; A9576

== ENCOUNTER → 2022-08-25 | Outpatient (CLI) | payer OTHER ==
[~2022-08-25] MED LIST changes: +LIDOCAINE 1% MDV 20ML VIAL As Ordered ONE; +MIDAZOLAM INJ 2MG/2ML VIAL (J2250 PER 1MG) As Ordered ONE; +NS 1,000 ML IV SCH; -PROHANCE 279.3MG/ML 15ML VIAL As Ordered ONE; +VANCOMYCIN 1000MG/20ML VIAL As Ordered ONE; +VANCOMYCIN HCL 1,000 MG, VIAL MATE ADAPTER 1 EACH in NS 250 ML IV ONE; +diphenhydrAMINE 50MG/ML VIAL As Ordered ONE; +fentaNYL 100 MCG/2 ML INJECTION As Ordered ONE
[2022-08-25 15:30] VITALS: BP 131/76
== END ==
LOC: M IRPRO 12:02
PROVIDERS: ATTEND Nurse Practitioner
DX: C34.90 Malignant neoplasm of unspecified part of unspecified bronchus or lung (principal)
CPT/HCPCS: 36590; 87635; 99152; 99153; J1644; J2250; J3010; J3370

== ENCOUNTER → 2022-08-27 | Outpatient (CLI) | payer OTHER ==
[~2022-08-27] MED LIST changes: -LIDOCAINE 1% MDV 20ML VIAL As Ordered ONE; -MIDAZOLAM INJ 2MG/2ML VIAL (J2250 PER 1MG) As Ordered ONE; -NS 1,000 ML IV SCH; -VANCOMYCIN 1000MG/20ML VIAL As Ordered ONE; -VANCOMYCIN HCL 1,000 MG, VIAL MATE ADAPTER 1 EACH in NS 250 ML IV ONE; -diphenhydrAMINE 50MG/ML VIAL As Ordered ONE; -fentaNYL 100 MCG/2 ML INJECTION As Ordered ONE
== END ==
LOC: M ONCR 12:58
PROVIDERS: ATTEND General Practice
DX: C79.31 Secondary malignant neoplasm of brain (principal); C34.90 Malignant neoplasm of unspecified part of unspecified bronchus or lung; F17.210 Nicotine dependence, cigarettes, uncomplicated; Z72.89 Other problems related to lifestyle; Z79.52 Long term (current) use of systemic steroids; Z79.899 Other long term (current) drug therapy; Z88.0 Allergy status to penicillin; Z92.21 Personal history of antineoplastic chemotherapy; Z92.25 Personal history of immunosuppression therapy; Z92.3 Personal history of irradiation

== ENCOUNTER → 2022-09-23 | Outpatient (CLI) | payer OTHER ==
[~2022-09-23] MED LIST changes: +BACT800T5 PO; +GASTROGRAFIN SOLUTION 30ML As Ordered ONE; +HYDR-4571 PO; +ISOVUE-370 76% 100ML VIAL As Ordered ONE; +[UNRECOGNIZED DRUG - CODE] EXT
== END ==
LOC: M RAD 15:00
PROVIDERS: ATTEND Nurse Practitioner
DX: C34.90 Malignant neoplasm of unspecified part of unspecified bronchus or lung (principal)

== ENCOUNTER → 2022-10-12 | Outpatient (POV) | payer OTHER ==
[~2022-10-12] VITALS: Ht 185.4 cm; Wt 72.7 kg
[~2022-10-12] MED LIST changes: -GASTROGRAFIN SOLUTION 30ML As Ordered ONE; -ISOVUE-370 76% 100ML VIAL As Ordered ONE
[2022-10-12 10:05] VITALS: BP 139/67
== END ==
LOC: M IRPOV 09:36
PROVIDERS: ATTEND Radiology Diagnostic Radiology
DX: Z45.2 Encounter for adjustment and management of vascular access device (principal); Z88.0 Allergy status to penicillin

== ENCOUNTER → 2022-10-18 | Outpatient (CLI) | payer OTHER ==
[~2022-10-18] MED LIST changes: +LIDO15SO4 PO; -LIDO2SOL17 PO; +LIDOCAINE 1% MDV 20ML VIAL As Ordered ONE; +MIDAZOLAM INJ 2MG/2ML VIAL As Ordered ONE; +MORP-69; +NS 1,000 ML IV SCH; +VANCOMYCIN 1000MG/20ML VIAL As Ordered ONE; +VANCOMYCIN HCL 1,000 MG, VIAL MATE ADAPTER 1 EACH in NS 250 ML IV ONE; +diphenhydrAMINE 50MG/ML VIAL As Ordered ONE; +fentaNYL 100 MCG/2 ML INJECTION As Ordered ONE
[2022-10-18 08:23] LABS: INR 0.88; PROTHROMBIN TIME 12.1 SECONDS (12.5-14.5)
[2022-10-18 12:30] VITALS: BP 103/62
== END ==
LOC: M IRPRO 07:33
PROVIDERS: ATTEND Nurse Practitioner
DX: C34.90 Malignant neoplasm of unspecified part of unspecified bronchus or lung (principal)
CPT/HCPCS: 36561; 85610; 87635; 99152; 99153; C1769; C1788; C1894

== ENCOUNTER → 2022-10-27 | Outpatient (CLI) | payer OTHER ==
[~2022-10-27] MED LIST changes: -LIDOCAINE 1% MDV 20ML VIAL As Ordered ONE; -MIDAZOLAM INJ 2MG/2ML VIAL As Ordered ONE; -NS 1,000 ML IV SCH; +PROHANCE 279.3MG/ML 15ML VIAL ONE; -VANCOMYCIN 1000MG/20ML VIAL As Ordered ONE; -VANCOMYCIN HCL 1,000 MG, VIAL MATE ADAPTER 1 EACH in NS 250 ML IV ONE; -diphenhydrAMINE 50MG/ML VIAL As Ordered ONE; -fentaNYL 100 MCG/2 ML INJECTION As Ordered ONE
== END ==
LOC: M PLAIMG 08:45
PROVIDERS: ATTEND General Practice
DX: C34.12 Malignant neoplasm of upper lobe, left bronchus or lung (principal); R51.9 Headache, unspecified
CPT/HCPCS: 70553; A9576

== ENCOUNTER 2022-11-05 12:58 | Outpatient (RCR) | payer OTHER ==
[~2022-11-05 12:58] MED LIST changes: -PROHANCE 279.3MG/ML 15ML VIAL ONE
[2022-11-12] MEDS ORDERED: ALEV220T22 PO (11:37)
== END 2022-11-16 ==
LOC: M ONCR 12:58
PROVIDERS: ATTEND General Practice
DX: C79.31 Secondary malignant neoplasm of brain (principal)

== ENCOUNTER → 2022-11-12 | Outpatient (CLI) | payer OTHER | LOC: M LABSMTC 08:59 | PROVIDERS: ATTEND Anesthesiology | DX: Z01.812 Encounter for preprocedural laboratory examination (principal); Z20.822 Contact with and (suspected) exposure to COVID-19 ==

== ENCOUNTER 2022-11-17 07:03 | Day surgery (SDC) | payer OTHER ==
[~2022-11-17] VITALS: Ht 185.4 cm; Wt 72.6 kg
[~2022-11-17 07:03] MED LIST changes: +ALBUTEROL SULFATE 2.5MG/0.5ML INH NEB SOLN INH ONE; +LIDOCAINE PRES-FREE 2% 10ML AMP INH ONE
[2022-11-17] MEDS ORDERED: fentaNYL 100 MCG/2 ML INJECTION As Ordered ONE (08:36)
[2022-11-17] MEDS ORDERED: ONDANSETRON 4MG 2ML VIAL As Ordered ONE (08:36)
[2022-11-17] MEDS ORDERED: LIDOCAINE 2% 100MG/5ML SDV (FOR ANES.) As Ordered ONE (08:36)
[2022-11-17] MEDS ORDERED: SUGAMMADEX SODIUM 500 MG/5 ML VIAL (BRIDION) As Ordered ONE (08:36)
[2022-11-17] MEDS ORDERED: ROCURONIUM BROMIDE 50MG/5ML VIAL As Ordered ONE (08:36)
[2022-11-17] MEDS ORDERED: MIDAZOLAM INJ 2MG/2ML VIAL As Ordered ONE (08:36)
[2022-11-17] MEDS ORDERED: propofoL 200 MG/20 ML VIAL As Ordered ONE (08:36)
[2022-11-17] MEDS ORDERED: CETACAINE SPRAY 5GM As Ordered ONE (08:38)
[2022-11-17] MEDS ORDERED: THROMBIN 5,000 UNITS VIAL As Ordered ONE (08:38)
[2022-11-17] MEDS ORDERED: EPINEPHrine 1MG/10ML SYRINGE 1.5IN As Ordered ONE (08:38)
[2022-11-17] MEDS ORDERED: LIDOCAINE 1% SDV 5ML VIAL SC PRN (08:55)
[2022-11-17] MEDS ORDERED: LR 1,000 ML IV SCH (08:55)
[2022-11-17 11:30] VITALS: BP 124/73
== END 2022-11-17 11:36 | disposition home or self-care (01) ==
LOC: M SDC 07:03
PROVIDERS: ATTEND Internal Medicine Critical Care Medicine
DX: C34.12 Malignant neoplasm of upper lobe, left bronchus or lung (principal); C77.1 Secondary and unspecified malignant neoplasm of intrathoracic lymph nodes; C79.51 Secondary malignant neoplasm of bone; C79.31 Secondary malignant neoplasm of brain; Z86.718 Personal history of other venous thrombosis and embolism; M19.90 Unspecified osteoarthritis, unspecified site; F32.A Depression, unspecified; J44.9 Chronic obstructive pulmonary disease, unspecified; Z79.1 Long term (current) use of non-steroidal anti-inflammatories (NSAID); F17.210 Nicotine dependence, cigarettes, uncomplicated; Z88.0 Allergy status to penicillin
CPT/HCPCS: 31623; 31624; 31629; 31652; 71045; 88104; 88108; 88173; 88305; 88313; J1100; J2250; J2405; J3010

== ENCOUNTER → 2022-12-13 | Outpatient (CLI) | payer OTHER ==
[~2022-12-13] MED LIST changes: -ALBUTEROL SULFATE 2.5MG/0.5ML INH NEB SOLN INH ONE; +HYDR12TA2 PO; -LIDOCAINE PRES-FREE 2% 10ML AMP INH ONE
== END ==
LOC: M ONCR 12:49
PROVIDERS: ATTEND General Practice
DX: C34.12 Malignant neoplasm of upper lobe, left bronchus or lung (principal); C79.51 Secondary malignant neoplasm of bone; C79.31 Secondary malignant neoplasm of brain; C04.1 Malignant neoplasm of lateral floor of mouth; F17.210 Nicotine dependence, cigarettes, uncomplicated; Z79.1 Long term (current) use of non-steroidal anti-inflammatories (NSAID); Z72.89 Other problems related to lifestyle; Z88.0 Allergy status to penicillin; Z92.29 Personal history of other drug therapy; Z92.3 Personal history of irradiation

== ENCOUNTER 2022-12-16 13:17 | Outpatient (RCR) | payer OTHER | END 2022-12-17 | LOC: M ONCR 13:17 | PROVIDERS: ATTEND General Practice | DX: C79.31 Secondary malignant neoplasm of brain (principal); C79.51 Secondary malignant neoplasm of bone; C34.12 Malignant neoplasm of upper lobe, left bronchus or lung; C04.1 Malignant neoplasm of lateral floor of mouth ==

== ENCOUNTER 2022-12-20 13:19 | Outpatient (RCR) | payer OTHER ==
[~2022-12-20 13:19] MED LIST changes: +LIDO15SO PO; -LIDO15SO4 PO
[2022-12-21] MEDS ORDERED: DEXA4TA PO (16:19)
[2022-12-21] MEDS ORDERED: FENT1DIS14 TOP (16:27)
[2022-12-21] MEDS ORDERED: MORP15TA2 PO (16:27)
[2022-12-28] MEDS ORDERED: MORP15TA2 PO (10:24)
[2022-12-29] MEDS ORDERED: SOTO320T PO (10:29)
[2022-12-31] MEDS ORDERED: SOTO320T PO (13:26)
[2023-01-04] MEDS ORDERED: SOTO120T PO (15:30)
[2023-01-05] MEDS ORDERED: MORP15TA2 PO (06:47)
[2023-01-13] MEDS ORDERED: FENT1DIS14 TOP (10:10)
[2023-01-13] MEDS ORDERED: DEXA4TA PO (10:10)
[2023-01-13] MEDS ORDERED: MORP15TA2 PO (10:10)
[2023-01-13] MEDS ORDERED: DEBR6.5S4 OTIC (11:02)
[2023-01-19] MEDS ORDERED: FENT1DIS14 TOP (07:13)
== END 2023-01-16 ==
LOC: M ONCR 13:19
PROVIDERS: ATTEND General Practice
DX: C34.12 Malignant neoplasm of upper lobe, left bronchus or lung (principal); C04.1 Malignant neoplasm of lateral floor of mouth; C79.31 Secondary malignant neoplasm of brain; C79.51 Secondary malignant neoplasm of bone

== ENCOUNTER → 2022-12-28 | Outpatient (CLI) | payer OTHER ==
[~2022-12-28] MED LIST changes: +MORP15TA2 PO; +SOTO120T PO; +SOTO320T PO
== END ==
LOC: M PAL 07:50
PROVIDERS: ATTEND Nurse Practitioner Family
DX: C34.12 Malignant neoplasm of upper lobe, left bronchus or lung (principal); C79.51 Secondary malignant neoplasm of bone; C79.31 Secondary malignant neoplasm of brain; G89.3 Neoplasm related pain (acute) (chronic); Z51.5 Encounter for palliative care; R11.2 Nausea with vomiting, unspecified; R63.0 Anorexia; Z90.89 Acquired absence of other organs; Z80.1 Family history of malignant neoplasm of trachea, bronchus and lung; F17.210 Nicotine dependence, cigarettes, uncomplicated; Z88.0 Allergy status to penicillin; Z79.891 Long term (current) use of opiate analgesic; Z79.899 Other long term (current) drug therapy

== ENCOUNTER 2022-12-29 07:49 | Outpatient (RCR) | payer OTHER ==
[~2022-12-29 07:49] MED LIST changes: -SOTO120T PO; -SOTO320T PO
[2022-12-29] MEDS ORDERED: SOTO320T PO (10:29)
[2022-12-31] MEDS ORDERED: SOTO320T PO (13:26)
[2023-01-04] MEDS ORDERED: SOTO120T PO (15:30)
[2023-01-05] MEDS ORDERED: MORP15TA2 PO (06:47)
[2023-01-13] MEDS ORDERED: FENT1DIS14 TOP (10:10)
[2023-01-13] MEDS ORDERED: DEXA4TA PO (10:10)
[2023-01-13] MEDS ORDERED: MORP15TA2 PO (10:10)
[2023-01-13] MEDS ORDERED: DEBR6.5S4 OTIC (11:02)
[2023-01-19] MEDS ORDERED: FENT1DIS14 TOP (07:13)
== END 2023-01-16 ==
LOC: M ONCR 07:49
PROVIDERS: ATTEND General Practice
DX: C04.1 Malignant neoplasm of lateral floor of mouth (principal)

== ENCOUNTER → 2023-01-13 | Outpatient (CLI) | payer OTHER ==
[~2023-01-13] VITALS: Ht 180.3 cm; Wt 63.4 kg
[~2023-01-13] MED LIST changes: +DEBR6.5S4 OTIC; +SOTO120T PO; +SOTO320T PO
[2023-01-13 09:45] VITALS: BP 138/81
== END ==
LOC: M PAL 09:37
PROVIDERS: ATTEND Nurse Practitioner Adult Health
DX: C34.12 Malignant neoplasm of upper lobe, left bronchus or lung (principal); C79.51 Secondary malignant neoplasm of bone; C79.31 Secondary malignant neoplasm of brain; G89.3 Neoplasm related pain (acute) (chronic); Z51.5 Encounter for palliative care; R53.83 Other fatigue; G47.00 Insomnia, unspecified; R63.0 Anorexia; R06.02 Shortness of breath; Z90.81 Acquired absence of spleen; Z80.1 Family history of malignant neoplasm of trachea, bronchus and lung; F17.210 Nicotine dependence, cigarettes, uncomplicated; R11.2 Nausea with vomiting, unspecified; Z88.0 Allergy status to penicillin; Z79.891 Long term (current) use of opiate analgesic; Z79.899 Other long term (current) drug therapy

== ENCOUNTER → 2023-01-14 | Outpatient (CLI) | payer OTHER ==
[~2023-01-14] MED LIST changes: +GASTROGRAFIN SOLUTION 30ML As Ordered ONE; +ISOVUE-370 76% 100ML VIAL As Ordered ONE
== END ==
LOC: M RAD 06:58
PROVIDERS: ATTEND Nurse Practitioner
DX: C34.90 Malignant neoplasm of unspecified part of unspecified bronchus or lung (principal)
CPT/HCPCS: 71260; 74177; Q9963; Q9967

== ENCOUNTER 2023-01-25 09:00 | Outpatient (RCR) | payer OTHER ==
[~2023-01-25 09:00] MED LIST changes: -GASTROGRAFIN SOLUTION 30ML As Ordered ONE; -ISOVUE-370 76% 100ML VIAL As Ordered ONE
[2023-02-02] MEDS ORDERED: FENT12DI8 TD (16:37)
[2023-02-02] MEDS ORDERED: MORP15TA2 PO (16:43)
[2023-02-08] MEDS ORDERED: DEXA4TA PO (09:27)
[2023-02-10] MEDS ORDERED: MORP20SO PO (16:25)
[2023-02-10] MEDS ORDERED: LORA2CON5 PO (16:25)
== END 2023-02-16 ==
LOC: M ONCR 09:00
PROVIDERS: ATTEND General Practice
DX: C04.1 Malignant neoplasm of lateral floor of mouth (principal); C34.12 Malignant neoplasm of upper lobe, left bronchus or lung; C79.31 Secondary malignant neoplasm of brain; C79.51 Secondary malignant neoplasm of bone

== ENCOUNTER → 2023-01-28 | Outpatient (CLI) | payer OTHER ==
[~2023-01-28] MED LIST changes: +FENT12DI8 TD; +LORA2CON5 PO; +MORP20SO PO
== END ==
LOC: M ONCR 11:01
PROVIDERS: ATTEND General Practice
DX: R53.1 Weakness (principal); H91.90 Unspecified hearing loss, unspecified ear; R41.89 Other symptoms and signs involving cognitive functions and awareness; Z63.8 Other specified problems related to primary support group; Z92.3 Personal history of irradiation

== ENCOUNTER → 2023-02-02 | Outpatient (CLI) | payer OTHER ==
[~2023-02-02] MED LIST changes: -LORA2CON5 PO; -MORP20SO PO
[2023-02-02 13:56] VITALS: BP 116/69
== END ==
LOC: M PAL 13:45
PROVIDERS: ATTEND Nurse Practitioner Adult Health
DX: C34.90 Malignant neoplasm of unspecified part of unspecified bronchus or lung (principal); C04.9 Malignant neoplasm of floor of mouth, unspecified; Z51.5 Encounter for palliative care; F17.210 Nicotine dependence, cigarettes, uncomplicated; Z79.52 Long term (current) use of systemic steroids; Z92.3 Personal history of irradiation; Z92.21 Personal history of antineoplastic chemotherapy; G89.3 Neoplasm related pain (acute) (chronic); Z79.891 Long term (current) use of opiate analgesic; H55.00 Unspecified nystagmus; R42 Dizziness and giddiness; R11.2 Nausea with vomiting, unspecified; R63.0 Anorexia; R53.83 Other fatigue; R41.0 Disorientation, unspecified; H91.90 Unspecified hearing loss, unspecified ear; Z79.899 Other long term (current) drug therapy; Z88.0 Allergy status to penicillin; Z80.1 Family history of malignant neoplasm of trachea, bronchus and lung; Z80.9 Family history of malignant neoplasm, unspecified; Z90.49 Acquired absence of other specified parts of digestive tract; Z90.81 Acquired absence of spleen; Z66 Do not resuscitate

== ENCOUNTER → 2023-02-08 | Outpatient (CLI) | payer OTHER ==
[~2023-02-08] MED LIST changes: +LORA2CON5 PO; +MORP20SO PO
[2023-02-08 09:21] VITALS: BP 104/66
== END ==
LOC: M PAL 09:12
PROVIDERS: ATTEND Nurse Practitioner Adult Health
DX: C34.12 Malignant neoplasm of upper lobe, left bronchus or lung (principal); C79.51 Secondary malignant neoplasm of bone; C79.31 Secondary malignant neoplasm of brain; C04.9 Malignant neoplasm of floor of mouth, unspecified; G89.3 Neoplasm related pain (acute) (chronic); Z79.891 Long term (current) use of opiate analgesic; Z79.52 Long term (current) use of systemic steroids; Z92.21 Personal history of antineoplastic chemotherapy; Z92.3 Personal history of irradiation; F17.210 Nicotine dependence, cigarettes, uncomplicated; R29.6 Repeated falls; R42 Dizziness and giddiness; R11.2 Nausea with vomiting, unspecified; R63.0 Anorexia; R41.0 Disorientation, unspecified; R64 Cachexia; R53.1 Weakness; Z66 Do not resuscitate; Z80.1 Family history of malignant neoplasm of trachea, bronchus and lung; Z90.81 Acquired absence of spleen; Z88.0 Allergy status to penicillin